=== PATIENT | female | born 1935 | race Caucasian/White ===

== ENCOUNTER 2020-04-08 20:07 | Inpatient (IN) | payer MEDICARE, MEDICAID ==
[2020-04-08] MEDS ORDERED: Acetaminophen 325 MG TAB ONE (20:30)
[2020-04-08 20:53] LABS: #Lymphocytes 1.2 thou/uL (1.20-3.40); #Neutrophils 12.5 thou/uL (1.40-6.50); %Basophils 0.1 % (0.0-1.0); %Eosinophils 0.2 % (0.0-10.0); %Monocytes 6.6 % (0.0-10.0); %Neutrophils 85.1 % (42.0-75.0); Hemoglobin 14.3 g/dL (12.0-16.0); Mean Corpuscular HGB CONC 32.8 g/dL (32.0-36.0); Mean Corpuscular Hemoglobin 31.6 pg (27.0-31.0); Mean Corpuscular Volume 96.3 fL (78.0-98.0); Mean Platelet Volume 7.4 fL (7.4-10.4); Platelet Count 382 thou/uL (130-400); RBC Distribution Width 11.9 % (11.5-14.5); Red Blood Cell (RBC) Count 4.54 mill/uL (4.20-5.40); White Blood Cell (WBC) Count 14.6 thou/uL (4.8-10.8)
[2020-04-08 21:16] LABS: ALT (SGPT) 16 U/L (8-55); AST (SGOT) 16 U/L (5-34); Albumin 3.6 g/dL (3.4-4.8); Alkaline Phosphatase 87 U/L (40-110); Anion Gap 17 mmol/L (10-20); BUN (Urea Nitrogen) 19 mg/dL (9.8-20.1); Bilirubin, Total 0.6 mg/dL (0.2-1.2); Calc. Creatinine Clearance 0 mL/min (70-130); Calcium 9.5 mg/dL (7.8-10.44); Carbon Dioxide 24 mmol/L (23-31); Chloride 99 mmol/L (98-107); Globulin 4.2 g/dL (2.4-3.5); Glucose 336 mg/dL (83-110); Magnesium 1.7 mg/dL (1.6-2.6); Protein, Total 7.8 g/dL (5.8-8.1); Sodium 135 mmol/L (136-145)
[2020-04-08 21:22] LABS: Bacteria/HPF 4+ HPF (None Seen); Bilirubin Negative (Negative); Blood, Urine Negative (Negative); Clarity Clear (Clear); Glucose, Urine (Dipstick) Greater than 1000 mg/dL (Negative); Ketone, Urine 60 mg/dL (Negative); Leukocyte 250 Leu/uL (Negative); Nitrite 2+ (Negative); Protein, Urine (Dipstick) 10 mg/dL (Neg-Trace); RBC/HPF 0-3 HPF (0-3); Renal Epithelial 0-3 HPF (None Seen); Specific Gravity, Urine 1.029 (1.002-1.036); Squamous Epithelial None Seen HPF (0-3); Urobilinogen Normal mg/dL (Less than 2); WBC/HPF 21-50 HPF (0-3)
--- NOTE | 2020-04-08 22:54 | RAD ---
RADIOGRAPH CHEST 1 VIEW: DATE: 04/08/2020 TIME: 10:45 PM HISTORY: 84-year-old female with cough COMPARISON: 07/08/2012 FINDINGS: Previously demonstrated density at right medial base is no longer present. No significant interval change in the lower thoracic midline mass. New subtle finding of faint, very small patchy reticulonodular densities at the left lateral lower gopi ng zone. No consolidation or pulmonary edema. No cardiomegaly or pneumothorax. IMPRESSION: 1) nonspecific faint mild pulmonary densities at left lateral lower lung zone. 2) moderate size hiatal hernia
[2020-04-08] MEDS ORDERED: cefTRIAXone\\ROCEPHIN 2 GM VIAL ONE (22:56)
[2020-04-08 23:45] LABS: SARS-CoV-2 NAA Rapid Test DETECTED (NotDetected)
[2020-04-09] MEDS ORDERED: Ondansetron PF 4 MG/2 ML Vial IVP PRN (00:27)
[2020-04-09] MEDS ORDERED: Dextrose 5% in Water 1,000 ML IV PRN (00:34)
[2020-04-09] MEDS ORDERED: Dextrose 50% Abboject 50 ML SYRINGE SLOW IVP PRN (00:34)
[2020-04-09] MEDS ORDERED: hydrALAZINE 20 MG/ML VIAL SLOW IVP PRN (00:36)
[2020-04-09] MEDS ORDERED: Sodium Chloride 0.9% 1,000 ML IV SCH (00:45)
--- NOTE | 2020-04-09 00:51 | PDOC.HHP ---
Hospitalist HPI Weakness, Cough History of Present Illness: Patient is 84 year-old female with PMH of HTN, DM II, hypothyroidism, and seizure who presents to the ED from [facility] living with fever and generalized weakness. Patient also reports dry cough and dysuria. She denies SOB of chest pain. Per report, patient states she started having her symptoms after she received her COVID-19 vaccine 3 days ago. ED Course: Initial vitals: BP:181/99, Pulse: 103, Temp: 100.1 oF, Spo2: 96% on RA COVID-19 test positive. CXR: nonsepcified faint mild pulmonary desities at the left lateral lower lung zone Allergies/Adverse Reactions: Allergy/AdvReac Type Severity Reaction Status Date / Time No Known Allergies Allergy Unverified 04/09/20 00:27 Past History: PMHx: HTN, DM type 2, Seizure, Hypothyroidism PSHx: None FHx: Father: CAD Mother: Cancer Social: denies cigaret, alcohol, or drug use Walks with a walker Hospitalist HPI ROS Constitutional: denies: chills Eyes: denies: vision change ENT: denies: throat pain Respiratory: reports: cough, shortness of breath Cardiovascular: denies: chest pain Gastrointestinal: denies: nausea, vomiting, diarrhea Genitourinary: reports: dysuria. denies: frequency Musculoskeletal: reports: leg pain Skin: denies: rash Neurological: reports: other (Negative for MCKEE) All other systems reviewed; all pertinent +/- noted in HPI/Subj Hospitalist Exam General Appearance: NAD, awake alert Eye: PERRL ENT: dry oral mucosa Neck: supple, no JVD Heart: RRR, no murmur Respiratory: CTAB, no wheezes Gastrointestinal: soft, non-tender, non-distended, normal bowel sounds Extremities: no edema Neurological: normal sensation to touch, no weakness Musculoskeletal: normal strength Musculoskeletal - other findings: no CVA tenderness bilaterally Psychiatric: normal affect, oriented to person, oriented to place Hospitalist Results Result Diagrams: 04/08/20 20:36 04/08/20 20:36 Lab results: Laboratory Last Values WBC 14.6 thou/uL (4.8-10.8) H 04/08/20 20:36 RBC 4.54 mill/uL (4.20-5.40) 04/08/20 20:36 Hgb 14.3 g/dL (12.0-16.0) 04/08/20 20:36 Hct 43.7 % (36.0-47.0) 04/08/20 20:36 MCV 96.3 fL (78.0-98.0) 04/08/20 20:36 MCH 31.6 pg (27.0-31.0) H 04/08/20 20:36 MCHC 32.8 g/dL (32.0-36.0) 04/08/20 20:36 RDW 11.9 % (11.5-14.5) 04/08/20 20:36 Plt Count 382 thou/uL (130-400) 04/08/20 20:36 MPV 7.4 fL (7.4-10.4) 04/08/20 20:36 Neutrophils % 85.1 % (42.0-75.0) H 04/08/20 20:36 Lymphocytes % 8.0 % (21.0-51.0) L 04/08/20 20:36 Monocytes % 6.6 % (0.0-10.0) 04/08/20 20:36 Eosinophils % 0.2 % (0.0-10.0) 04/08/20 20:36 Basophils % 0.1 % (0.0-1.0) 04/08/20 20:36 Neutrophils # 12.5 thou/uL (1.40-6.50) H 04/08/20 20:36 Lymphocytes # 1.2 thou/uL (1.20-3.40) 04/08/20 20:36 Monocytes # 1.0 thou/uL (0.11-0.59) H 04/08/20 20:36 Eosinophils # 0.0 thou/uL (0.0-0.7) 04/08/20 20:36 Basophils # 0.0 thou/uL (0.0-0.2) 04/08/20 20:36 Sodium 135 mmol/L (136-145) L 04/08/20 20:36 Potassium 5.0 mmol/L (3.5-5.1) 04/08/20 20:36 Chloride 99 mmol/L (98-107) 04/08/20 20:36 Carbon Dioxide 24 mmol/L (23-31) 04/08/20 20:36 Anion Gap 17 mmol/L (10-20) 04/08/20 20:36 BUN 19 mg/dL (9.8-20.1) 04/08/20 20:36 Creatinine 1.17 mg/dL (0.6-1.1) H 04/08/20 20:36 Estimated GFR (MDRD) 44 04/08/20 20:36 Glucose 336 mg/dL (83-110) H 04/08/20 20:36 Calcium 9.5 mg/dL (7.8-10.44) 04/08/20 20:36 Magnesium 1.7 mg/dL (1.6-2.6) 04/08/20 20:36 Total Bilirubin 0.6 mg/dL (0.2-1.2) 04/08/20 20:36 AST 16 U/L (5-34) 04/08/20 20:36 ALT 16 U/L (8-55) 04/08/20 20:36 Alkaline Phosphatase 87 U/L (40-110) 04/08/20 20:36 Creatine Kinase 31 U/L (29-168) 04/08/20 20:37 Troponin I Less than 0.010 ng/mL (< 0.028) 04/08/20 20:36 Serum Total Protein 7.8 g/dL (5.8-8.1) 04/08/20 20:36 Albumin 3.6 g/dL (3.4-4.8) 04/08/20 20:36 Globulin 4.2 g/dL (2.4-3.5) H 04/08/20 20:36 Albumin/Globulin Ratio 0.9 g/dL (1.2-2.2) L 04/08/20 20:36 Urine Color Yellow (Yellow) 04/08/20 21:04 Urine Clarity Clear (Clear) 04/08/20 21:04 Urine pH 5.0 (5.0-9.0) 04/08/20 21:04 Ur Specific [place] 1.029 (1.002-1.036) 04/08/20 21:04 Urine Protein 10 mg/dL (Neg-Trace) 04/08/20 21:04 Urine Glucose (UA) Greater than 1000 mg/dL (Negative) A 04/08/20 21:04 Urine Ketones 60 mg/dL (Negative) A 04/08/20 21:04 Urine Blood Negative (Negative) 04/08/20 21: Urine Nitrite 2+ (Negative) A 04/08/20 21:04 Urine Bilirubin Negative (Negative) 04/08/20 21:04 Urine Urobilinogen Normal mg/dL (Less than 2) 04/08/20 21:04 Ur Leukocyte Esterase 250 [place]eline/uL (Negative) A 04/08/20 21:04 Urine RBC 0-3 HPF (0-3) 04/08/20 21:04 Urine WBC 21-50 HPF (0-3) A 04/08/20 21:04 Ur Squamous Epith Cells None Seen HPF (0-3) 04/08/20 21:04 Ur Renal Epithelial Cell 0-3 HPF (None Seen) A 04/08/20 21:04 Urine Bacteria 4+ HPF (None Seen) A 04/08/20 21:04 Hyaline Casts 0-3 LPF (0-3) 04/08/20 21:04 Influenza A RNA INAAT Not Detected (NotDetected) 04/08/20 22:38 Influenza B RNA INAAT Not Detected (NotDetected) 04/08/20 22:38 SARS-CoV-2 Rap RNA(RT-PCR) DETECTED (NotDetected) A* 04/08/20 22:38 EKG Status: image reviewed by me (NSR) Chest x-ray Status: image reviewed by me Additional Comments: RADIOLOGY SatApr 08, 2020 22:57 MD Raya, Amparo XR Chest 1 View Portable Observe DT: SatApr 08, 2020 22:29, CXRP RADIOGRAPH CHEST 1 VIEW: DATE: 04/08/2020 TIME: 10:45 PM HISTORY: 84-year-old female with cough COMPARISON: 07/08/2012 FINDINGS: Previously demonstrated density at right medial base is no longer present. No significant interval change in the lower thoracic midline mass. New subtle finding of faint, very small patchy reticulonodular densities at the left lateral lower gopi ng zone. No consolidation or pulmonary edema. No cardiomegaly or pneumothorax. IMPRESSION: 1) nonspecific faint mild pulmonary densities at left lateral lower lung zone. 2) moderate size hiatal hernia Hospitalist H&P A/P (1) UTI (urinary tract infection) Status: Acute Qualifiers: Urinary tract infection type: acute cystitis Assessment and Plan: UA consistent with UTI. She also has low grade fever and leukocytosis. No CVA tenderness on exam. Plan: -f/u urine and blood culture -continue Ceftriaxone (2) AMY (acute kidney injury) Code(s): N17.9 - ACUTE KIDNEY FAILURE, UNSPECIFIED Status: Acute Assessment and Plan: [place] pre-renal. Plan: -IV fluid -repeat BMP in AM -renally dose meds (3) COVID-19 Code(s): U07.1 - COVID-19 Status: Acute Assessment and Plan: Not requring O2 supplement. Plan: -Zinc, Vitamin C, and Vitamin D (4) DM (diabetes mellitus), type 2, uncontrolled Code(s): E11.65 - TYPE 2 DIABETES MELLITUS WITH HYPERGLYCEMIA Status: Chronic Qualifiers: Glycemic state: with hyperglycemia Qualified Code(s): E11.65 - Type 2 diabetes mellitus with hyperglycemia Assessment and Plan: Initial BG level elevated. Patient states she is on insulin outpatient. Plan: -SS insulin ACHS -cont home meds once reconciled (5) Generalized weakness Code(s): R53.1 - WEAKNESS Status: Acute Assessment and Plan: Likely due to her UTI and/COID-19. Plan: -treat UTI as above -PT consulted (6) Seizure Code(s): R56.9 - UNSPECIFIED CONVULSIONS Status: Chronic Assessment and Plan: No med list was sent with the patient. Plan: -cont home med once reconciled (7) HTN (hypertension) Code(s): I10 - ESSENTIAL (PRIMARY) HYPERTENSION Status: Chronic Assessment and Plan: Plan: -cont home med once reconciled -Hydrazine iv prn
[2020-04-09 01:58] VITALS: BMI 25.8
[2020-04-09] MEDS: HumaLOG 300 UNITS/3 ML VIAL SC PRN ×4 (05:07→20:23)
[2020-04-09 06:19] LABS: Anion Gap 14 mmol/L (10-20); BUN (Urea Nitrogen) 15 mg/dL (9.8-20.1); Calc. Creatinine Clearance 51 mL/min (70-130); Carbon Dioxide 20 mmol/L (23-31); Chloride 104 mmol/L (98-107); Potassium 4.4 mmol/L (3.5-5.1); Sodium 134 mmol/L (136-145)
[2020-04-09 06:20] LABS: ALT (SGPT) 12 U/L (8-55); AST (SGOT) 12 U/L (5-34); Albumin 2.7 g/dL (3.4-4.8); Alkaline Phosphatase 71 U/L (40-110); Bilirubin, Total 0.4 mg/dL (0.2-1.2); Calcium 8.2 mg/dL (7.8-10.44); Globulin 3.2 g/dL (2.4-3.5); Glucose 420 mg/dL (83-110); Protein, Total 5.9 g/dL (5.8-8.1)
[2020-04-09] MEDS: Zinc Sulfate 220 MG CAP PO SCH (08:36)
[2020-04-09] MEDS: Cholecalciferol (Vitamin D3) 400 UNITS TAB PO SCH (08:36)
[2020-04-09] MEDS: Ascorbic Acid 500 mg Chewable Tablet PO SCH (08:37)
[2020-04-09] MEDS: Heparin 5,000 UNITS/ML VIAL SC SCH ×3 (08:37→20:22)
--- NOTE | 2020-04-09 11:42 | PDOC.HOSPP ---
- Subjective Encounter Date: 04/09/20 (f/u UTI) Encounter Time: 11:39 Subjective: Pt reports that she is feeling better today but still weak. She has not been out of bed. She denies any cp/n/v/abd pain. - Objective Vital Signs & Weight: Vital Signs (12 hours) Temp Pulse Resp BP Pulse Ox 04/09/20 08:00 99.1 F 82 20 150/80 H 92 L 04/09/20 03:59 98.8 F 91 18 143/69 H 96 04/09/20 01:05 98.5 F 90 18 177/72 H 96 Weight Weight 160 lb 4.417 oz I&O: 04/08/20 04/09/20 04/10/20 06:59 06:59 06:59 Intake Total 725 Balance 725 Result Diagrams: 04/08/20 20:36 04/09/20 05:36 Additional Labs: Accuchecks 04/09/20 04:50 POC Glucose 389 H Hospitalist ROS - Medication Medications: Active Medications Generic Name Dose Route Start Last Admin Trade Name Jena PRN Reason Stop Dose Admin Ascorbic Acid 1,000 mg 04/09/20 09:00 04/09/20 08:37 Ascorbic Acid 500 Mg Chewable Tablet PO 1,000 mg DAILY CAIT Administration Cholecalciferol 400 units 04/09/20 09:00 04/09/20 08:36 Cholecalciferol (Vitamin D3) 400 Units Tab PO 400 units DAILY CAIT Administration Heparin Sodium (Porcine) 5,000 units 04/09/20 09:00 04/09/20 08:37 Heparin 5,000 Units/Ml Vial SC 5,000 units TID CAIT Administration Insulin Human Lispro 0 units 04/09/20 00:34 04/09/20 05:07 Humalog 300 Units/3 Ml Vial SC 6 unit .MILD SLIDING SCALE PRN Administration Mild Correctional Scale Sodium Chloride 10 ml 04/09/20 01:00 04/09/20 02:37 Flush - Normal Saline 10 Ml Syringe IVF 10 ml PRN PRN Administration Saline Flush Zinc Sulfate 220 mg 04/09/20 09:00 04/09/20 08:36 Zinc Sulfate 220 Mg Cap PO 220 mg DAILY CAIT Administration Hospitalist Exam Vitals: Vital Signs (12 hours) Temp Pulse Resp BP Pulse Ox 04/09/20 08:00 99.1 F 82 20 150/80 H 92 L 04/09/20 03:59 98.8 F 91 18 143/69 H 96 04/09/20 01:05 98.5 F 90 18 177/72 H 96 Weight Weight 160 lb 4.417 oz General Appearance: NAD Heart: RRR, no murmur Respiratory: CTAB, no wheezes, no rales, no ronchi Gastrointestinal: soft, non-tender, non-distended, normal bowel sounds Extremities: no cyanosis, no clubbing, no edema Psychiatric: normal affect Hosp A/P (1) AMY (acute kidney injury) Code(s): N17.9 - ACUTE KIDNEY FAILURE, UNSPECIFIED Status: Acute (2) COVID-19 Code(s): U07.1 - COVID-19 Status: Acute (3) Generalized weakness Code(s): R53.1 - WEAKNESS Status: Acute (4) UTI (urinary tract infection) Status: Acute Qualifiers: Urinary tract infection type: acute cystitis (5) DM (diabetes mellitus), type 2, uncontrolled Code(s): E11.65 - TYPE 2 DIABETES MELLITUS WITH HYPERGLYCEMIA Status: Chronic Qualifiers: Glycemic state: with hyperglycemia Qualified Code(s): E11.65 - Type 2 diabetes mellitus with hyperglycemia (6) HTN (hypertension) Code(s): I10 - ESSENTIAL (PRIMARY) HYPERTENSION Status: Chronic (7) Seizure Code(s): R56.9 - UNSPECIFIED CONVULSIONS Status: Chronic - Plan COVID - asx, not oxygen requiring, on supplements only UTI - urine culture obtained -no result yet - continue rocephin - blood cx negative DM - uncontrolled - add 10 units of lantus - continue SSI - meds reconcilled AMY - mild - has received IVF, will d/c to avoid volume overload - hold home losartan Hypertension - not optimally controlled - will start low dose amlodipine - hold home losartan due to AMY Seizure - uncertain of this dx as no home med identified Weakness - PT/OT dvt prophy - lovenox gi prophy - not indicated Because we are waiting on the urine culture, for potentially complicated infection, will continue rocephin and change the patient to inpatient status as she meets medicare criteria.
[2020-04-09] MEDS ORDERED: Amlodipine 5 MG TAB PO SCH (11:45)
[2020-04-09] MEDS ORDERED: Insulin Glargine 10 UNITS in Pre-Filled Syringe 1 EACH SC SCH (12:00)
[2020-04-09] MEDS: metFORMIN XR 500 MG TAB PO SCH (18:26)
[2020-04-09] MEDS: Acetaminophen 325 MG TAB PO PRN (20:21)
[2020-04-09] MEDS: cefTRIAXone\\ROCEPHIN 1 GM in Sodium Chloride 0.9% 100 ML IVPB SCH (23:35)
[2020-04-10] MEDS: HumaLOG 300 UNITS/3 ML VIAL SC PRN ×3 (04:44→20:21)
[2020-04-10 06:56] LABS: #Eosinphils 0.1 thou/uL (0.0-0.7); #Lymphocytes 1.4 thou/uL (1.20-3.40); #Monocytes 0.8 thou/uL (0.11-0.59); #Neutrophils 8.8 thou/uL (1.40-6.50); %Eosinophils 0.5 % (0.0-10.0); %Lymphocytes 12.3 % (21.0-51.0); %Neutrophils 80.2 % (42.0-75.0); Mean Corpuscular HGB CONC 32.2 g/dL (32.0-36.0); Mean Corpuscular Hemoglobin 31.1 pg (27.0-31.0); Mean Corpuscular Volume 96.7 fL (78.0-98.0); Mean Platelet Volume 7.5 fL (7.4-10.4); Platelet Count 311 thou/uL (130-400); RBC Distribution Width 11.7 % (11.5-14.5); Red Blood Cell (RBC) Count 3.85 mill/uL (4.20-5.40)
[2020-04-10 07:13] LABS: Anion Gap 12 mmol/L (10-20); BUN (Urea Nitrogen) 9 mg/dL (9.8-20.1); Calc. Creatinine Clearance 54 mL/min (70-130); Calcium 8.2 mg/dL (7.8-10.44); Carbon Dioxide 24 mmol/L (23-31); Chloride 101 mmol/L (98-107); Glucose 195 mg/dL (83-110); Potassium 3.8 mmol/L (3.5-5.1); Sodium 133 mmol/L (136-145)
[2020-04-10] MEDS: metFORMIN XR 500 MG TAB PO SCH ×2 (08:57→18:56)
[2020-04-10] MEDS: Alogliptin 25 MG TAB PO SCH (08:57)
[2020-04-10] MEDS: Amlodipine 5 MG TAB PO SCH (08:58)
[2020-04-10] MEDS: Ascorbic Acid 500 mg Chewable Tablet PO SCH (08:58)
[2020-04-10] MEDS: Heparin 5,000 UNITS/ML VIAL SC SCH ×3 (08:58→20:14)
[2020-04-10] MEDS: Cholecalciferol (Vitamin D3) 400 UNITS TAB PO SCH (08:58)
[2020-04-10] MEDS: Zinc Sulfate 220 MG CAP PO SCH (08:58)
[2020-04-10] MEDS ORDERED: Insulin Glargine 10 UNITS in Pre-Filled Syringe 1 EACH SC SCH (09:00)
[2020-04-10] MEDS ORDERED: Losartan 25 MG TAB PO SCH (09:00)
--- NOTE | 2020-04-10 13:10 | PDOC.HOSPP ---
- Subjective Encounter Date: 04/10/20 (f/u UTI and covid) Encounter Time: 13:09 Subjective: Pt today reports her left knee hurts - sharp pain. She denies any fall prior to this admission. She denies any n/v/abd pain/chest pain or breathing difficulty. - Objective Vital Signs & Weight: Vital Signs (12 hours) Temp Pulse Resp BP Pulse Ox 04/10/20 08:58 90 04/10/20 07:00 99.0 F 93 20 170/75 H 97 Weight Admit Weight 160 lb 4.417 oz Weight 160 lb 4.417 oz I&O: 04/09/20 04/10/20 04/11/20 06:59 06:59 06:59 Intake Total 725 1635 Output Total 1600 Balance 725 35 Result Diagrams: 04/10/20 06:14 04/10/20 06:14 Additional Labs: Accuchecks 04/10/20 04/10/20 04/09/20 11:57 04:37 19:56 POC Glucose 355 H 210 H 317 H 04/09/20 16:05 POC Glucose 255 H Hospitalist ROS - Medication Medications: Active Medications Generic Name Dose Route Start Last Admin Trade Name Freq PRN Reason Stop Dose Admin Acetaminophen 650 mg 04/09/20 00:27 04/09/20 20:21 Acetaminophen 325 Mg Tab PO 650 mg Q4H PRN Administration Headache/Fever/Mild Pain (1-3) Alogliptin Benzoate 25 mg 04/10/20 09:00 04/10/20 08:57 Alogliptin 25 Mg Tab PO 25 mg DAILY CAIT Administration Amlodipine Besylate 2.5 mg 04/10/20 09:00 04/10/20 08:58 Amlodipine 5 Mg Tab PO 2.5 mg DAILY CAIT Administration Ascorbic Acid 1,000 mg 04/09/20 09:00 04/10/20 08:58 Ascorbic Acid 500 Mg Chewable Tablet PO 1,000 mg DAILY CAIT Administration Cholecalciferol 400 units 04/09/20 09:00 04/10/20 08:58 Cholecalciferol (Vitamin D3) 400 Units Tab PO 400 units DAILY CAIT Administration Heparin Sodium (Porcine) 5,000 units 04/09/20 09:00 04/10/20 08:58 Heparin 5,000 Units/Ml Vial SC 5,000 units TID CAIT Administration Ceftriaxone Sodium 1 gm/ 100 mls @ 200 mls/hr 04/09/20 23:00 04/09/20 23:35 Sodium Chloride IVPB 100 mls Q24HR CAIT Administration Insulin Glargine 10 units/ 0.1 mls @ 0 mls/hr 04/10/20 09:00 04/10/20 08:58 Miscellaneous Medication SC 0.1 mls QAM CAIT Administration Insulin Human Lispro 0 units 04/09/20 00:34 04/10/20 04:44 Humalog 300 Units/3 Ml Vial SC 3 unit .MILD SLIDING SCALE PRN Administration Mild Correctional Scale Insulin Human Lispro 0 units 04/09/20 11:37 04/09/20 20:23 Humalog 300 Units/3 Ml Vial SC 5 unit .BEDTIME SLIDING SC PRN Administration Bedtime Correctional Scale Metformin HCl 500 mg 04/09/20 18:00 04/10/20 08:57 Metformin Xr 500 Mg Tab PO 500 mg BID-PC CAIT Administration Sodium Chloride 10 ml 04/09/20 01:00 04/09/20 23:36 Flush - Normal Saline 10 Ml Syringe IVF 10 ml PRN PRN Administration Saline Flush Zinc Sulfate 220 mg 04/09/20 09:00 04/10/20 08:58 Zinc Sulfate 220 Mg Cap PO 220 mg DAILY CAIT Administration Hospitalist Exam Vitals: Vital Signs (12 hours) Temp Pulse Resp BP Pulse Ox 04/10/20 08:58 90 04/10/20 07:00 99.0 F 93 20 170/75 H 97 Weight Admit Weight 160 lb 4.417 oz Weight 160 lb 4.417 oz General Appearance: NAD Heart: RRR, no murmur Respiratory: CTAB, no wheezes, no rales, no ronchi Gastrointestinal: soft, non-tender, non-distended, normal bowel sounds Extremities: no cyanosis, no clubbing, no edema Musculoskeletal - other findings: left knee - no skin changes, no edema Psychiatric: normal affect Hosp A/P (1) AMY (acute kidney injury) Code(s): N17.9 - ACUTE KIDNEY FAILURE, UNSPECIFIED Status: Acute (2) COVID-19 Code(s): U07.1 - COVID-19 Status: Acute (3) Generalized weakness Code(s): R53.1 - WEAKNESS Status: Acute (4) UTI (urinary tract infection) Status: Acute Qualifiers: Urinary tract infection type: acute cystitis (5) DM (diabetes mellitus), type 2, uncontrolled Code(s): E11.65 - TYPE 2 DIABETES MELLITUS WITH HYPERGLYCEMIA Status: Chronic Qualifiers: Glycemic state: with hyperglycemia Qualified Code(s): E11.65 - Type 2 diabetes mellitus with hyperglycemia (6) HTN (hypertension) Code(s): I10 - ESSENTIAL (PRIMARY) HYPERTENSION Status: Chronic (7) Seizure Code(s): R56.9 - UNSPECIFIED CONVULSIONS Status: Chronic - Plan COVID - remains asx - asx, not oxygen requiring, on supplements only UTI with some encephalopathy - uncertain if pt has baseline cognitive changes or the confusion is related to illness - urine culture obtained -gram neg growth - anticipate ID&sens today - continue rocephin - blood cx negative DM - uncontrolled - increase to 13 units of lantus and change to moderate SSI - continue SSI AMY - resolved - s/p IVF - continue to hold losartan for a few more days Hypertension - improved - continue low dose amlodipine - hold home losartan due to AMY Seizure - uncertain of this dx as no home med identified Knee pain - check XR of left knee - topical diclofenac Weakness - PT/OT - PT recommends SNF - pt states she lives alone - will benefit from some type of transitional care dvt prophy - change to lovenox once daily from heparin gi prophy - not indicated Consult for case management for SNF Anticipate pt ready for discharge when placement is established
--- NOTE | 2020-04-10 14:10 | RAD ---
XR Knee Rt 3 View HISTORY: Left knee pain FINDINGS: No fracture or dislocation is identified. There are degenerative changes manifested by osteophyte for mation and joint space narrowing. Chondrocalcinosis is present.
[2020-04-10] MEDS: Diclofenac 1% 100 GM GEL TP SCH ×2 (18:56→20:13)
[2020-04-10] MEDS: Acetaminophen 325 MG TAB PO PRN (20:13)
[2020-04-10] MEDS: cefTRIAXone\\ROCEPHIN 1 GM in Sodium Chloride 0.9% 100 ML IVPB SCH (23:06)
[2020-04-11] MEDS: HumaLOG 300 UNITS/3 ML VIAL SC PRN ×4 (05:27→21:45)
[2020-04-11] MEDS: Ascorbic Acid 500 mg Chewable Tablet PO SCH (08:12)
[2020-04-11] MEDS: Amlodipine 5 MG TAB PO SCH (08:12)
[2020-04-11] MEDS: Alogliptin 25 MG TAB PO SCH (08:12)
[2020-04-11] MEDS: metFORMIN XR 500 MG TAB PO SCH ×2 (08:12→17:07)
[2020-04-11] MEDS: Heparin 5,000 UNITS/ML VIAL SC SCH ×3 (08:13→21:46)
[2020-04-11] MEDS: Diclofenac 1% 100 GM GEL TP SCH ×4 (08:13→21:37)
[2020-04-11] MEDS: Cholecalciferol (Vitamin D3) 400 UNITS TAB PO SCH (08:13)
[2020-04-11] MEDS: Zinc Sulfate 220 MG CAP PO SCH (08:13)
[2020-04-11 08:30] LABS: #Lymphocytes 1.3 thou/uL (1.20-3.40); #Monocytes 0.8 thou/uL (0.11-0.59); #Neutrophils 9.7 thou/uL (1.40-6.50); %Basophils 0.1 % (0.0-1.0); %Eosinophils 0.2 % (0.0-10.0); %Lymphocytes 10.8 % (21.0-51.0); %Monocytes 6.4 % (0.0-10.0); %Neutrophils 82.5 % (42.0-75.0); Hemoglobin 12.3 g/dL (12.0-16.0); Mean Corpuscular HGB CONC 33.6 g/dL (32.0-36.0); Mean Corpuscular Hemoglobin 32.3 pg (27.0-31.0); Mean Corpuscular Volume 96.4 fL (78.0-98.0); Mean Platelet Volume 7.6 fL (7.4-10.4); Platelet Count 332 thou/uL (130-400); White Blood Cell (WBC) Count 11.7 thou/uL (4.8-10.8)
[2020-04-11 08:50] LABS: Anion Gap 14 mmol/L (10-20); BUN (Urea Nitrogen) 10 mg/dL (9.8-20.1); Calc. Creatinine Clearance 58 mL/min (70-130); Calcium 8.8 mg/dL (7.8-10.44); Carbon Dioxide 23 mmol/L (23-31); Chloride 103 mmol/L (98-107); Glucose 158 mg/dL (83-110); Potassium 3.4 mmol/L (3.5-5.1); Sodium 137 mmol/L (136-145)
--- NOTE | 2020-04-11 09:16 | PDOC.HOSPP ---
- Subjective Encounter Date: 04/11/20 Encounter Time: 08:59 Subjective: alert. daniel fine - Objective Vital Signs & Weight: Vital Signs (12 hours) Temp Pulse Resp BP Pulse Ox 04/11/20 08:20 94 128/69 100 04/11/20 07:23 98.5 F 80 16 165/74 H 98 04/11/20 04:00 98.8 F 88 16 145/77 H 98 Weight Admit Weight 160 lb 4.417 oz Weight 160 lb 4.417 oz I&O: 04/10/20 04/11/20 04/12/20 06:59 06:59 06:59 Intake Total 1635 870 Output Total 1600 800 Balance 35 70 Result Diagrams: 04/11/20 07:55 04/11/20 07:55 Additional Labs: Accuchecks 04/11/20 04/10/20 04/10/20 05:02 20:19 16:39 POC Glucose 215 H 251 H 226 H 04/10/20 11:57 POC Glucose 355 H Hospitalist ROS - Medication Medications: Active Medications Generic Name Dose Route Start Last Admin Trade Name Freq PRN Reason Stop Dose Admin Acetaminophen 650 mg 04/09/20 00:27 04/10/20 20:13 Acetaminophen 325 Mg Tab PO 650 mg Q4H PRN Administration Headache/Fever/Mild Pain (1-3) Alogliptin Benzoate 25 mg 04/10/20 09:00 04/11/20 08:12 Alogliptin 25 Mg Tab PO 25 mg DAILY CAIT Administration Amlodipine Besylate 2.5 mg 04/10/20 09:00 04/11/20 08:12 Amlodipine 5 Mg Tab PO 2.5 mg DAILY CAIT Administration Ascorbic Acid 1,000 mg 04/09/20 09:00 04/11/20 08:12 Ascorbic Acid 500 Mg Chewable Tablet PO 1,000 mg DAILY CAIT Administration Cholecalciferol 400 units 04/09/20 09:00 04/11/20 08:13 Cholecalciferol (Vitamin D3) 400 Units Tab PO 400 units DAILY CAIT Administration Diclofenac Sodium 2 gm 04/10/20 17:00 04/11/20 08:13 Diclofenac 1% 100 Gm Gel TP 2 gm QID CAIT Administration Heparin Sodium (Porcine) 5,000 units 04/09/20 09:00 04/11/20 08:13 Heparin 5,000 Units/Ml Vial SC 5,000 units TID CAIT Administration Ceftriaxone Sodium 1 gm/ 100 mls @ 200 mls/hr 04/09/20 23:00 04/10/20 23:06 Sodium Chloride IVPB 100 mls Q24HR CAIT Administration Insulin Human Lispro 0 units 04/09/20 11:37 04/10/20 20:21 Humalog 300 Units/3 Ml Vial SC 3 unit .BEDTIME SLIDING SC PRN Administration Bedtime Correctional Scale Insulin Human Lispro 0 units 04/10/20 13:36 04/11/20 05:27 Humalog 300 Units/3 Ml Vial SC 4 unit .MODERATE SLIDING SC PRN Administration Moderate Correctional Scale Metformin HCl 500 mg 04/09/20 18:00 04/11/20 08:12 Metformin Xr 500 Mg Tab PO 500 mg BID-PC CAIT Administration Sodium Chloride 10 ml 04/09/20 01:00 04/09/20 23:36 Flush - Normal Saline 10 Ml Syringe IVF 10 ml PRN PRN Administration Saline Flush Zinc Sulfate 220 mg 04/09/20 09:00 04/11/20 08:13 Zinc Sulfate 220 Mg Cap PO 220 mg DAILY CAIT Administration Hospitalist Exam Vitals: Vital Signs (12 hours) Temp Pulse Resp BP Pulse Ox 04/11/20 08:20 94 128/69 100 04/11/20 07:23 98.5 F 80 16 165/74 H 98 04/11/20 04:00 98.8 F 88 16 145/77 H 98 Weight Admit Weight 160 lb 4.417 oz Weight 160 lb 4.417 oz General Appearance: awake alert Neck: no JVD Heart: RRR, no murmur Respiratory: CTAB Gastrointestinal: soft, normal bowel sounds Extremities: no edema Hosp A/P (1) AMY (acute kidney injury) Code(s): N17.9 - ACUTE KIDNEY FAILURE, UNSPECIFIED Status: Resolved (2) COVID-19 Code(s): U07.1 - COVID-19 Status: Acute (3) UTI (urinary tract infection) Status: Acute Qualifiers: Urinary tract infection type: acute cystitis (4) DM (diabetes mellitus), type 2, uncontrolled Code(s): E11.65 - TYPE 2 DIABETES MELLITUS WITH HYPERGLYCEMIA Status: Chronic Qualifiers: Glycemic state: with hyperglycemia Qualified Code(s): E11.65 - Type 2 diabetes mellitus with hyperglycemia (5) HTN (hypertension) Code(s): I10 - ESSENTIAL (PRIMARY) HYPERTENSION Status: Chronic Qualifiers: Hypertension type: essential hypertension Qualified Code(s): I10 - Essential (primary) hypertension - Plan COVID pos-asymptomatic, no mtx indicated UTI- e coli, DC iv antibx, starat omnicef cont selected home meds
[2020-04-11] MEDS ORDERED: Cefdinir 300 MG CAP PO SCH (09:30)
[2020-04-11] MEDS: PRE FILLED SC SCH (09:31)
[2020-04-11] MEDS: INSULIN GLARGINE SC SCH (09:31)
[2020-04-11] MEDS ORDERED: Polyethylene Glycol 3350 17 GM Packet PO SCH (10:45)
[2020-04-11] MEDS: Acetaminophen 325 MG TAB PO PRN (21:36)
[2020-04-11] MEDS: Cefdinir 300 MG CAP PO SCH (21:36)
[2020-04-12] MEDS: HumaLOG 300 UNITS/3 ML VIAL SC PRN ×3 (04:54→15:35)
--- NOTE | 2020-04-12 08:07 | PDOC.HOSPP ---
- Subjective Encounter Date: 04/12/20 Encounter Time: 08:06 Subjective: alert, no distress or complaints - Objective Vital Signs & Weight: Vital Signs (12 hours) Temp Pulse Resp BP Pulse Ox 04/12/20 07:27 98.5 F 91 18 162/84 H 95 Weight Admit Weight 160 lb 4.417 oz Weight 160 lb 4.417 oz I&O: 04/11/20 04/12/20 04/13/20 06:59 06:59 06:59 Intake Total 870 950 Output Total 800 300 Balance 70 650 Result Diagrams: 04/11/20 07:55 04/11/20 07:55 Additional Labs: Accuchecks 04/12/20 04/11/20 04/11/20 04:52 21:40 11:45 POC Glucose 228 H 288 H 251 H Hospitalist ROS - Medication Medications: Active Medications Generic Name Dose Route Start Last Admin Trade Name Freq PRN Reason Stop Dose Admin Acetaminophen 650 mg 04/09/20 00:27 04/11/20 21:36 Acetaminophen 325 Mg Tab PO 650 mg Q4H PRN Administration Headache/Fever/Mild Pain (1-3) Alogliptin Benzoate 25 mg 04/10/20 09:00 04/11/20 08:12 Alogliptin 25 Mg Tab PO 25 mg DAILY CAIT Administration Amlodipine Besylate 2.5 mg 04/10/20 09:00 04/11/20 08:12 Amlodipine 5 Mg Tab PO 2.5 mg DAILY CAIT Administration Ascorbic Acid 1,000 mg 04/09/20 09:00 04/11/20 08:12 Ascorbic Acid 500 Mg Chewable Tablet PO 1,000 mg DAILY CAIT Administration Cefdinir 300 mg 04/11/20 21:00 04/11/20 21:36 Cefdinir 300 Mg Cap PO 300 mg BID CAIT Administration Cholecalciferol 400 units 04/09/20 09:00 04/11/20 08:13 Cholecalciferol (Vitamin D3) 400 Units Tab PO 400 units DAILY CAIT Administration Diclofenac Sodium 2 gm 04/10/20 17:00 04/11/20 21:37 Diclofenac 1% 100 Gm Gel TP 2 gm QID CAIT Administration Heparin Sodium (Porcine) 5,000 units 04/09/20 09:00 04/11/20 21:46 Heparin 5,000 Units/Ml Vial SC 5,000 units TID CAIT Administration Insulin Glargine 13 units/ 0.13 mls @ 0 mls/hr 04/11/20 09:00 04/11/20 09:31 Miscellaneous Medication SC 0.13 mls QAM ACIT Administration Insulin Human Lispro 0 units 04/09/20 11:37 04/11/20 21:45 Humalog 300 Units/3 Ml Vial SC 3 unit .BEDTIME SLIDING SC PRN Administration Bedtime Correctional Scale Insulin Human Lispro 0 units 04/10/20 13:36 04/12/20 04:54 Humalog 300 Units/3 Ml Vial SC 4 unit .MODERATE SLIDING SC PRN Administration Moderate Correctional Scale Metformin HCl 500 mg 04/09/20 18:00 04/11/20 17:07 Metformin Xr 500 Mg Tab PO 500 mg BID-PC CAIT Administration Sodium Chloride 10 ml 04/09/20 01:00 04/09/20 23:36 Flush - Normal Saline 10 Ml Syringe IVF 10 ml PRN PRN Administration Saline Flush Zinc Sulfate 220 mg 04/09/20 09:00 04/11/20 08:13 Zinc Sulfate 220 Mg Cap PO 220 mg DAILY CAIT Administration Hospitalist Exam Vitals: Vital Signs (12 hours) Temp Pulse Resp BP Pulse Ox 04/12/20 07:27 98.5 F 91 18 162/84 H 95 Weight Admit Weight 160 lb 4.417 oz Weight 160 lb 4.417 oz General Appearance: awake alert Neck: no JVD Heart: RRR, no murmur Respiratory: CTAB Gastrointestinal: soft, normal bowel sounds Extremities: no edema Hosp A/P (1) AMY (acute kidney injury) Code(s): N17.9 - ACUTE KIDNEY FAILURE, UNSPECIFIED Status: Resolved (2) COVID-19 Code(s): U07.1 - COVID-19 Status: Acute (3) UTI (urinary tract infection) Status: Acute Qualifiers: Urinary tract infection type: acute cystitis (4) DM (diabetes mellitus), type 2, uncontrolled Code(s): E11.65 - TYPE 2 DIABETES MELLITUS WITH HYPERGLYCEMIA Status: Chronic Qualifiers: Glycemic state: with hyperglycemia Qualified Code(s): E11.65 - Type 2 diabetes mellitus with hyperglycemia (5) HTN (hypertension) Code(s): I10 - ESSENTIAL (PRIMARY) HYPERTENSION Status: Chronic Qualifiers: Hypertension type: essential hypertension Qualified Code(s): I10 - E ssential (primary) hypertension - Plan COVID pos-asymptomatic, no tx indicated UTI- e coli,on omnicef cont selected home meds placement
[2020-04-12] MEDS: Ascorbic Acid 500 mg Chewable Tablet PO SCH (08:19)
[2020-04-12] MEDS: metFORMIN XR 500 MG TAB PO SCH ×2 (08:19→17:09)
[2020-04-12] MEDS: Heparin 5,000 UNITS/ML VIAL SC SCH ×3 (08:20→19:44)
[2020-04-12] MEDS: Amlodipine 5 MG TAB PO SCH (08:20)
[2020-04-12] MEDS: Polyethylene Glycol 3350 17 GM Packet PO SCH (08:21)
[2020-04-12] MEDS: Cefdinir 300 MG CAP PO SCH ×2 (08:21→19:44)
[2020-04-12] MEDS: Cholecalciferol (Vitamin D3) 400 UNITS TAB PO SCH (08:21)
[2020-04-12] MEDS: Zinc Sulfate 220 MG CAP PO SCH (08:21)
[2020-04-12] MEDS: Alogliptin 25 MG TAB PO SCH (08:21)
[2020-04-12] MEDS: Diclofenac 1% 100 GM GEL TP SCH ×4 (08:25→19:45)
[2020-04-12] MEDS: INSULIN GLARGINE SC SCH (09:59)
[2020-04-12] MEDS: PRE FILLED SC SCH (09:59)
[2020-04-13] MEDS: HumaLOG 300 UNITS/3 ML VIAL SC PRN ×4 (05:25→20:22)
--- NOTE | 2020-04-13 08:06 | PDOC.HOSPP ---
- Subjective Encounter Date: 04/13/20 Encounter Time: 08:05 Subjective: alert, cheerfull, eating well - Objective Vital Signs & Weight: Vital Signs (12 hours) Temp Pulse Resp BP Pulse Ox 04/13/20 07:25 97.8 F 94 18 150/82 H 93 L Weight Admit Weight 160 lb 4.417 oz Weight 160 lb 4.417 oz I&O: 04/12/20 04/13/20 04/14/20 06:59 06:59 06:59 Intake Total 950 1680 Output Total 300 950 Balance 650 730 Result Diagrams: 04/11/20 07:55 04/11/20 07:55 Additional Labs: Accuchecks 04/13/20 04/12/20 04/12/20 04:29 15:29 12:09 POC Glucose 187 H 284 H 396 H 04/12/20 04/11/20 11:11 16:29 POC Glucose 395 H 224 H Hospitalist ROS - Medication Medications: Active Medications Generic Name Dose Route Start Last Admin Trade Name Freq PRN Reason Stop Dose Admin Acetaminophen 650 mg 04/09/20 00:27 04/11/20 21:36 Acetaminophen 325 Mg Tab PO 650 mg Q4H PRN Administration Headache/Fever/Mild Pain (1-3) Alogliptin Benzoate 25 mg 04/10/20 09:00 04/12/20 08:21 Alogliptin 25 Mg Tab PO 25 mg DAILY CAIT Administration Amlodipine Besylate 2.5 mg 04/10/20 09:00 04/12/20 08:20 Amlodipine 5 Mg Tab PO 2.5 mg DAILY CAIT Administration Ascorbic Acid 1,000 mg 04/09/20 09:00 04/12/20 08:19 Ascorbic Acid 500 Mg Chewable Tablet PO 1,000 mg DAILY CAIT Administration Cefdinir 300 mg 04/11/20 21:00 04/12/20 19:44 Cefdinir 300 Mg Cap PO 300 mg BID CAIT Administration Cholecalciferol 400 units 04/09/20 09:00 04/12/20 08:21 Cholecalciferol (Vitamin D3) 400 Units Tab PO 400 units DAILY CAIT Administration Diclofenac Sodium 2 gm 04/10/20 17:00 04/12/20 19:45 Diclofenac 1% 100 Gm Gel TP 2 gm QID CAIT Administration Heparin Sodium (Porcine) 5,000 units 04/09/20 09:00 04/12/20 19:44 Heparin 5,000 Units/Ml Vial SC 5,000 units TID CAIT Administration Insulin Glargine 13 units/ 0.13 mls @ 0 mls/hr 04/11/20 09:00 04/12/20 09:59 Miscellaneous Medication SC 0.13 mls QAM CAIT Administration Insulin Human Lispro 0 units 04/09/20 11:37 04/11/20 21:45 Humalog 300 Units/3 Ml Vial SC 3 unit .BEDTIME SLIDING SC PRN Administration Bedtime Correctional Scale Insulin Human Lispro 0 units 04/10/20 13:36 04/13/20 05:25 Humalog 300 Units/3 Ml Vial SC 2 unit .MODERATE SLIDING SC PRN Administration Moderate Correctional Scale Metformin HCl 500 mg 04/09/20 18:00 04/12/20 17:09 Metformin Xr 500 Mg Tab PO 500 mg BID-PC CAIT Administration Polyethylene Glycol 17 gm 04/12/20 09:00 04/12/20 08:21 Polyethylene Glycol 3350 17 Gm Packet PO 17 gm DAILY CAIT Administration Sodium Chloride 10 ml 04/09/20 01:00 04/09/20 23:36 Flush - Normal Saline 10 Ml Syringe IVF 10 ml PRN PRN Administration Saline Flush Zinc Sulfate 220 mg 04/09/20 09:00 04/12/20 08:21 Zinc Sulfate 220 Mg Cap PO 220 mg DAILY CAIT Administration Hospitalist Exam Vitals: Vital Signs (12 hours) Temp Pulse Resp BP Pulse Ox 04/13/20 07:25 97.8 F 94 18 150/82 H 93 L Weight Admit Weight 160 lb 4.417 oz Weight 160 lb 4.417 oz General Appearance: awake alert Neck: no JVD Heart: RRR, no murmur Respiratory: CTAB Gastrointestinal: soft, normal bowel sounds Extremities: no edema Hosp A/P (1) AMY (acute kidney injury) Code(s): N17.9 - ACUTE KIDNEY FAILURE, UNSPECIFIED Status: Resolved (2) COVID-19 Code(s): U07.1 - COVID-19 Status: Acute (3) UTI (urinary tract infection) Status: Acute Qualifiers: Urinary tract infection type: acute cystitis (4) DM (diabetes mellitus), type 2, uncontrolled Code(s): E11.65 - TYPE 2 DIABETES MELLITUS WITH HYPERGLYCEMIA Status: Chronic Qualifiers: Glycemic state: with hyperglycemia Qualified Code(s): E11.65 - Type 2 diabetes mellitus with hyperglycemia (5) HTN (hypertension) Code(s): I10 - ESSENTIAL (PRIMARY) HYPERTENSION Status: Chronic Qualifiers: Hypertension type: essential hypertension Qualified Code(s): I10 - Essential (primary) hypertension - Plan COVID pos-asymptomatic, no tx indicated UTI- e coli,on omnicef cont selected home meds placement
[2020-04-13] MEDS: Polyethylene Glycol 3350 17 GM Packet PO SCH (08:52)
[2020-04-13] MEDS: INSULIN GLARGINE SC SCH (08:52)
[2020-04-13] MEDS: PRE FILLED SC SCH (08:52)
[2020-04-13] MEDS: Ascorbic Acid 500 mg Chewable Tablet PO SCH (08:53)
[2020-04-13] MEDS: Alogliptin 25 MG TAB PO SCH (08:53)
[2020-04-13] MEDS: Zinc Sulfate 220 MG CAP PO SCH (08:53)
[2020-04-13] MEDS: Cefdinir 300 MG CAP PO SCH ×2 (08:53→20:21)
[2020-04-13] MEDS: levETIRAcetam 500 MG TAB PO SCH ×2 (08:53→20:21)
[2020-04-13] MEDS: metFORMIN XR 500 MG TAB PO SCH ×2 (08:54→16:52)
[2020-04-13] MEDS: Heparin 5,000 UNITS/ML VIAL SC SCH ×3 (08:54→20:22)
[2020-04-13] MEDS: Diclofenac 1% 100 GM GEL TP SCH ×4 (08:54→20:20)
[2020-04-13] MEDS: Amlodipine 5 MG TAB PO SCH (08:57)
[2020-04-13] MEDS: Cholecalciferol (Vitamin D3) 400 UNITS TAB PO SCH (09:03)
[2020-04-13] MEDS: Nateglinide 120 MG TAB PO SCH ×2 (12:12→16:52)
[2020-04-13] MEDS: Acetaminophen 325 MG TAB PO PRN (20:21)
[2020-04-14] MEDS: HumaLOG 300 UNITS/3 ML VIAL SC PRN ×2 (06:09→12:49)
[2020-04-14] MEDS: Polyethylene Glycol 3350 17 GM Packet PO SCH (09:22)
[2020-04-14] MEDS: metFORMIN XR 500 MG TAB PO SCH ×2 (09:27→17:20)
[2020-04-14] MEDS: PRE FILLED SC SCH (09:28)
[2020-04-14] MEDS: Cholecalciferol (Vitamin D3) 400 UNITS TAB PO SCH (09:28)
[2020-04-14] MEDS: INSULIN GLARGINE SC SCH (09:28)
[2020-04-14] MEDS: Ascorbic Acid 500 mg Chewable Tablet PO SCH (09:28)
[2020-04-14] MEDS: Heparin 5,000 UNITS/ML VIAL SC SCH ×3 (09:28→21:36)
[2020-04-14] MEDS: Cefdinir 300 MG CAP PO SCH ×2 (09:28→21:28)
[2020-04-14] MEDS: Alogliptin 25 MG TAB PO SCH (09:28)
[2020-04-14] MEDS: Zinc Sulfate 220 MG CAP PO SCH (09:29)
[2020-04-14] MEDS: Nateglinide 120 MG TAB PO SCH ×3 (09:29→16:04)
[2020-04-14] MEDS: Amlodipine 5 MG TAB PO SCH (09:29)
[2020-04-14] MEDS: levETIRAcetam 500 MG TAB PO SCH ×2 (09:30→21:28)
[2020-04-14] MEDS: Diclofenac 1% 100 GM GEL TP SCH ×4 (09:30→21:29)
--- NOTE | 2020-04-14 14:36 | PDOC.HOSPP ---
- Subjective Encounter Date: 04/14/20 Encounter Time: 14:34 Subjective: stable, no overnite events - Objective Vital Signs & Weight: Vital Signs (12 hours) Temp Pulse Resp BP Pulse Ox 04/14/20 09:29 99 04/14/20 08:00 95 04/14/20 07:06 98.1 F 99 20 134/76 96 Weight Admit Weight 160 lb 4.417 oz Weight 160 lb 4.417 oz I&O: 04/13/20 04/14/20 04/15/20 06:59 06:59 06:59 Intake Total 1680 480 Output Total 950 950 Balance 730 -470 Result Diagrams: 04/11/20 07:55 04/11/20 07:55 Additional Labs: Accuchecks 04/14/20 04/14/20 04/13/20 12:11 05:37 20:18 POC Glucose 313 H 232 H 343 H 04/13/20 15:59 POC Glucose 246 H Hospitalist ROS - Medication Medications: Active Medications Generic Name Dose Route Start Last Admin Trade Name Freq PRN Reason Stop Dose Admin Acetaminophen 650 mg 04/09/20 00:27 04/13/20 20:21 Acetaminophen 325 Mg Tab PO 650 mg Q4H PRN Administration Headache/Fever/Mild Pain (1-3) Alogliptin Benzoate 25 mg 04/10/20 09:00 04/14/20 09:28 Alogliptin 25 Mg Tab PO 25 mg DAILY CAIT Administration Amlodipine Besylate 2.5 mg 04/10/20 09:00 04/14/20 09:29 Amlodipine 5 Mg Tab PO 2.5 mg DAILY CAIT Administration Ascorbic Acid 1,000 mg 04/09/20 09:00 04/14/20 09:28 Ascorbic Acid 500 Mg Chewable Tablet PO 1,000 mg DAILY CAIT Administration Cefdinir 300 mg 04/11/20 21:00 04/14/20 09:28 Cefdinir 300 Mg Cap PO 300 mg BID CAIT Administration Cholecalciferol 400 units 04/09/20 09:00 04/14/20 09:28 Cholecalciferol (Vitamin D3) 400 Units Tab PO 400 units DAILY CAIT Administration Diclofenac Sodium 2 gm 04/10/20 17:00 04/14/20 12:49 Diclofenac 1% 100 Gm Gel TP 2 gm QID CAIT Administration Heparin Sodium (Porcine) 5,000 units 04/09/20 09:00 04/14/20 09:28 Heparin 5,000 Units/Ml Vial SC 5,000 units TID CAIT Administration Insulin Glargine 13 units/ 0.13 mls @ 0 mls/hr 04/11/20 09:00 04/14/20 09:28 Miscellaneous Medication SC 0.13 mls QAM CAIT Administration Insulin Human Lispro 0 units 04/09/20 11:37 04/13/20 20:22 Humalog 300 Units/3 Ml Vial SC 5 unit .BEDTIME SLIDING SC PRN Administration Bedtime Correctional Scale Insulin Human Lispro 0 units 04/10/20 13:36 04/14/20 12:49 Humalog 300 Units/3 Ml Vial SC 8 unit .MODERATE SLIDING SC PRN Administration Moderate Correctional Scale Levetiracetam 500 mg 04/13/20 09:00 04/14/20 09:30 Levetiracetam 500 Mg Tab PO 500 mg BID CAIT Administration Metformin HCl 500 mg 04/09/20 18:00 04/14/20 09:27 Metformin Xr 500 Mg Tab PO 500 mg BID-PC CAIT Administration Nateglinide 120 mg 04/13/20 11:30 04/14/20 12:49 Nateglinide 120 Mg Tab PO 120 mg AC CAIT Administration Polyethylene Glycol 17 gm 04/12/20 09:00 04/14/20 09:22 Polyethylene Glycol 3350 17 Gm Packet PO Not Given DAILY CAIT Sodium Chloride 10 ml 04/09/20 01:00 04/09/20 23:36 Flush - Normal Saline 10 Ml Syringe IVF 10 ml PRN PRN Administration Saline Flush Zinc Sulfate 220 mg 04/09/20 09:00 04/14/20 09:29 Zinc Sulfate 220 Mg Cap PO 220 mg DAILY CAIT Administration Hospitalist Exam Vitals: Vital Signs (12 hours) Temp Pulse Resp BP Pulse Ox 04/14/20 09:29 99 04/14/20 08:00 95 04/14/20 07:06 98.1 F 99 20 134/76 96 Weight Admit Weight 160 lb 4.417 oz Weight 160 lb 4.417 oz General Appearance: awake alert Neck: no JVD Heart: RRR Respiratory: CTAB Gastrointestinal: soft, normal bowel sounds Extremities: 1+ LE edema Hosp A/P (1) AMY (acute kidney injury) Code(s): N17.9 - ACUTE KIDNEY FAILURE, UNSPECIFIED Status: Resolved (2) COVID-19 Code(s): U07.1 - COVID-19 Status: Acute (3) UTI (urinary tract infection) Status: Acute Qualifiers: Urinary tract infection type: acute cystitis (4) DM (diabetes mellitus), type 2, uncontrolled Code(s): E11.65 - TYPE 2 DIABETES MELLITUS WITH HYPERGLYCEMIA Status: Chronic Qualifiers: Glycemic state: with hyperglycemia Qualified Code(s): E11.65 - Type 2 diabetes mellitus with hyperglycemia (5) HTN (hypertension) Code(s): I10 - ESSENTIAL (PRIMARY) HYPERTENSION Status: Chronic Qualifiers: Hypertension type: essential hypertension Qualified Code(s): I10 - Essential (primary) hypertension - Plan COVID pos-asymptomatic, no tx indicated UTI- e coli,on omnicef cont selected home meds placement will no be available until 04/18/20
[2020-04-15] MEDS: HumaLOG 300 UNITS/3 ML VIAL SC PRN ×3 (05:49→21:02)
[2020-04-15] MEDS: Ascorbic Acid 500 mg Chewable Tablet PO SCH (08:26)
[2020-04-15] MEDS: Alogliptin 25 MG TAB PO SCH (08:26)
[2020-04-15] MEDS: Heparin 5,000 UNITS/ML VIAL SC SCH ×3 (08:26→20:59)
[2020-04-15] MEDS: Zinc Sulfate 220 MG CAP PO SCH (08:27)
[2020-04-15] MEDS: Cefdinir 300 MG CAP PO SCH ×2 (08:27→20:59)
[2020-04-15] MEDS: levETIRAcetam 500 MG TAB PO SCH ×2 (08:27→20:59)
[2020-04-15] MEDS: Amlodipine 5 MG TAB PO SCH (08:27)
[2020-04-15] MEDS: Cholecalciferol (Vitamin D3) 400 UNITS TAB PO SCH (08:27)
[2020-04-15] MEDS: Polyethylene Glycol 3350 17 GM Packet PO SCH (08:28)
[2020-04-15] MEDS: Diclofenac 1% 100 GM GEL TP SCH ×4 (08:28→21:19)
[2020-04-15] MEDS: Nateglinide 120 MG TAB PO SCH ×3 (08:28→17:02)
[2020-04-15] MEDS: metFORMIN XR 500 MG TAB PO SCH ×2 (08:28→17:02)
[2020-04-15] MEDS: INSULIN GLARGINE SC SCH (08:37)
[2020-04-15] MEDS: PRE FILLED SC SCH (08:37)
--- NOTE | 2020-04-15 16:20 | PDOC.HOSPP ---
- Subjective Encounter Date: 04/15/20 Encounter Time: 16:17 non-verbal Subjective: Patient seen and evaluated today. 84-year-old who was admitted with Covid pneumonia who is doing really well. She likely has some memory issues as she does not participate in this assessment. However she is pending placement following this hospitalization. We anticipate this to happen by Saturday, April 18, 2020. - Objective Vital Signs & Weight: Vital Signs (12 hours) Temp Pulse Resp BP Pulse Ox 04/15/20 12:44 99.0 F 89 20 142/84 H 91 L 04/15/20 08:27 93 04/15/20 07:05 98.9 F 94 20 138/84 91 L Weight Admit Weight 160 lb 4.417 oz Weight 160 lb 4.417 oz I&O: 04/14/20 04/15/20 04/16/20 06:59 06:59 06:59 Intake Total 480 Output Total 950 Balance -470 Result Diagrams: 04/11/20 07:55 04/11/20 07:55 Additional Labs: Accuchecks 04/15/20 04/15/20 04/14/20 12:04 04:38 20:21 POC Glucose 235 H 188 H 198 H 04/14/20 17:00 POC Glucose 148 H Radiology Reviewed by me: Yes EKG Reviewed by me: Yes Hospitalist ROS - Review of Systems ROS unobtainable: due to mental status Constitutional: reports: sweats, weakness, malaise Gastrointestinal: reports: nausea, vomiting Neurological: reports: confusion - Medication Medications: Active Medications Generic Name Dose Route Start Last Admin Trade Name Freq PRN Reason Stop Dose Admin Acetaminophen 650 mg 04/09/20 00:27 04/13/20 20:21 Acetaminophen 325 Mg Tab PO 650 mg Q4H PRN Administration Headache/Fever/Mild Pain (1-3) Alogliptin Benzoate 25 mg 04/10/20 09:00 04/15/20 08:26 Alogliptin 25 Mg Tab PO 25 mg DAILY CAIT Administration Amlodipine Besylate 2.5 mg 04/10/20 09:00 04/15/20 08:27 Amlodipine 5 Mg Tab PO 2.5 mg DAILY CAIT Administration Ascorbic Acid 1,000 mg 04/09/20 09:00 04/15/20 08:26 Ascorbic Acid 500 Mg Chewable Tablet PO 1,000 mg DAILY CAIT Administration Cefdinir 300 mg 04/11/20 21:00 04/15/20 08:27 Cefdinir 300 Mg Cap PO 300 mg BID CAIT Administration Cholecalciferol 400 units 04/09/20 09:00 04/15/20 08:27 Cholecalciferol (Vitamin D3) 400 Units Tab PO 400 units DAILY CAIT Administration Diclofenac Sodium 2 gm 04/10/20 17:00 04/15/20 12:27 Diclofenac 1% 100 Gm Gel TP 2 gm QID CAIT Administration Heparin Sodium (Porcine) 5,000 units 04/09/20 09:00 04/15/20 15:26 Heparin 5,000 Units/Ml Vial SC 5,000 units TID CAIT Administration Insulin Glargine 13 units/ 0.13 mls @ 0 mls/hr 04/11/20 09:00 04/15/20 08:37 Miscellaneous Medication SC 0.13 mls QAM CAIT Administration Insulin Human Lispro 0 units 04/09/20 11:37 04/13/20 20:22 Humalog 300 Units/3 Ml Vial SC 5 unit .BEDTIME SLIDING SC PRN Administration Bedtime Correctional Scale Insulin Human Lispro 0 units 04/10/20 13:36 04/15/20 12:26 Humalog 300 Units/3 Ml Vial SC 4 unit .MODERATE SLIDING SC PRN Administration Moderate Correctional Scale Levetiracetam 500 mg 04/13/20 09:00 04/15/20 08:27 Levetiracetam 500 Mg Tab PO 500 mg BID CAIT Administration Metformin HCl 500 mg 04/09/20 18:00 04/15/20 08:28 Metformin Xr 500 Mg Tab PO 500 mg BID-PC CAIT Administration Nateglinide 120 mg 04/13/20 11:30 04/15/20 12:30 Nateglinide 120 Mg Tab PO 120 mg AC CAIT Administration Polyethylene Glycol 17 gm 04/12/20 09:00 04/15/20 08:28 Polyethylene Glycol 3350 17 Gm Packet PO 17 gm DAILY CAIT Administration Sodium Chloride 10 ml 04/09/20 01:00 04/09/20 23:36 Flush - Normal Saline 10 Ml Syringe IVF 10 ml PRN PRN Administration Saline Flush Zinc Sulfate 220 mg 04/09/20 09:00 04/15/20 08:27 Zinc Sulfate 220 Mg Cap PO 220 mg DAILY CAIT Administration Hospitalist Exam Vitals: Vital Signs (12 hours) Temp Pulse Resp BP Pulse Ox 04/15/20 12:44 99.0 F 89 20 142/84 H 91 L 04/15/20 08:27 93 04/15/20 07:05 98.9 F 94 20 138/84 91 L Weight Admit Weight 160 lb 4.417 oz Weight 160 lb 4.417 oz General Appearance: NAD, awake alert Eye: PERRL, anicteric sclera ENT: normocephalic atraumatic, no oropharyngeal lesions Neck: supple, symmetric, no JVD, no thyromegaly, no lymphadenopathy Heart: RRR, no murmur, no gallops, no rubs, normal peripheral pulses Respiratory: CTAB, no wheezes, no rales, no ronchi Gastrointestinal: soft, non-tender, non-distended, normal bowel sounds Neurological: cranial nerve grossly intact, normal sensation to touch Psychiatric: normal affect, normal behavior, A&O x 3 Hosp A/P (1) COVID-19 Code(s): U07.1 - COVID-19 Status: Acute (2) Generalized weakness Code(s): R53.1 - WEAKNESS Status: Acute (3) UTI (urinary tract infection) Status: Acute Qualifiers: Urinary tract infection type: acute cystitis (4) DM (diabetes mellitus), type 2, uncontrolled Code(s): E11.65 - TYPE 2 DIABETES MELLITUS WITH HYPERGLYCEMIA Status: Chronic Qualifiers: Glycemic state: with hyperglycemia Qualified Code(s): E11.65 - Type 2 diabetes mellitus with hyperglycemia (5) AMY (acute kidney injury) Code(s): N17.9 - ACUTE KIDNEY FAILURE, UNSPECIFIED Status: Resolved - Plan old records reviewed/req, PT/OT [facility] Clinically she is stable to transfer once she is approved.
[2020-04-16] MEDS: PRE FILLED SC SCH (08:27)
[2020-04-16] MEDS: INSULIN GLARGINE SC SCH (08:27)
[2020-04-16] MEDS: Nateglinide 120 MG TAB PO SCH ×3 (08:27→16:36)
[2020-04-16] MEDS: Cholecalciferol (Vitamin D3) 400 UNITS TAB PO SCH (08:27)
[2020-04-16] MEDS: metFORMIN XR 500 MG TAB PO SCH ×2 (08:27→16:36)
[2020-04-16] MEDS: Polyethylene Glycol 3350 17 GM Packet PO SCH (08:27)
[2020-04-16] MEDS: Ascorbic Acid 500 mg Chewable Tablet PO SCH (08:28)
[2020-04-16] MEDS: Heparin 5,000 UNITS/ML VIAL SC SCH ×3 (08:28→20:51)
[2020-04-16] MEDS: Zinc Sulfate 220 MG CAP PO SCH (08:28)
[2020-04-16] MEDS: levETIRAcetam 500 MG TAB PO SCH ×2 (08:28→20:50)
[2020-04-16] MEDS: Alogliptin 25 MG TAB PO SCH (08:28)
[2020-04-16] MEDS: Amlodipine 5 MG TAB PO SCH (08:28)
[2020-04-16] MEDS: Cefdinir 300 MG CAP PO SCH ×2 (08:28→20:50)
[2020-04-16] MEDS: Diclofenac 1% 100 GM GEL TP SCH ×4 (08:29→20:50)
[2020-04-16] MEDS: HumaLOG 300 UNITS/3 ML VIAL SC PRN ×3 (12:34→20:51)
--- NOTE | 2020-04-16 15:14 | PDOC.HOSPP ---
- Subjective Encounter Date: 04/16/20 Encounter Time: 15:12 Subjective: Patient seen and examined today. She is an 84-year-old admitted with COVID-19 pneumonia who is doing really well. She is pending placement at a nursing home facility. - Objective Vital Signs & Weight: Vital Signs (12 hours) Temp Pulse Resp BP Pulse Ox 04/16/20 08:28 92 04/16/20 08:00 98.4 F 100 20 144/85 H 91 L 04/16/20 04:00 98.2 F Weight Admit Weight 160 lb 4.417 oz Weight 160 lb 4.417 oz Result Diagrams: 04/11/20 07:55 04/11/20 07:55 Additional Labs: Accuchecks 04/16/20 04/16/20 04/15/20 11:38 04:43 20:50 POC Glucose 334 H 147 H 237 H Radiology Reviewed by me: Yes EKG Reviewed by me: Yes Hospitalist ROS - Review of Systems Respiratory: reports: cough, dry - Medication Medications: Active Medications Generic Name Dose Route Start Last Admin Trade Name Freq PRN Reason Stop Dose Admin Acetaminophen 650 mg 04/09/20 00:27 04/13/20 20:21 Acetaminophen 325 Mg Tab PO 650 mg Q4H PRN Administration Headache/Fever/Mild Pain (1-3) Alogliptin Benzoate 25 mg 04/10/20 09:00 04/16/20 08:28 Alogliptin 25 Mg Tab PO 25 mg DAILY CAIT Administration Amlodipine Besylate 2.5 mg 04/10/20 09:00 04/16/20 08:28 Amlodipine 5 Mg Tab PO 2.5 mg DAILY CAIT Administration Ascorbic Acid 1,000 mg 04/09/20 09:00 04/16/20 08:28 Ascorbic Acid 500 Mg Chewable Tablet PO 1,000 mg DAILY CAIT Administration Cefdinir 300 mg 04/11/20 21:00 04/16/20 08:28 Cefdinir 300 Mg Cap PO 300 mg BID CAIT Administration Cholecalciferol 400 units 04/09/20 09:00 04/16/20 08:27 Cholecalciferol (Vitamin D3) 400 Units Tab PO 400 units DAILY CAIT Administration Diclofenac Sodium 2 gm 04/10/20 17:00 04/16/20 12:33 Diclofenac 1% 100 Gm Gel TP 2 gm QID CAIT Administration Heparin Sodium (Porcine) 5,000 units 04/09/20 09:00 04/16/20 08:28 Heparin 5,000 Units/Ml Vial SC 5,000 units TID CAIT Administration Insulin Glargine 13 units/ 0.13 mls @ 0 mls/hr 04/11/20 09:00 04/16/20 08:27 Miscellaneous Medication SC 0.13 mls QAM CAIT Administration Insulin Human Lispro 0 units 04/09/20 11:37 04/15/20 21:02 Humalog 300 Units/3 Ml Vial SC 2 unit .BEDTIME SLIDING SC PRN Administration Bedtime Correctional Scale Insulin Human Lispro 0 units 04/10/20 13:36 04/16/20 12:34 Humalog 300 Units/3 Ml Vial SC 8 unit .MODERATE SLIDING SC PRN Administration Moderate Correctional Scale Levetiracetam 500 mg 04/13/20 09:00 04/16/20 08:28 Levetiracetam 500 Mg Tab PO 500 mg BID CAIT Administration Metformin HCl 500 mg 04/09/20 18:00 04/16/20 08:27 Metformin Xr 500 Mg Tab PO 500 mg BID-PC CAIT Administration Nateglinide 120 mg 04/13/20 11:30 04/16/20 12:33 Nateglinide 120 Mg Tab PO 120 mg AC CAIT Administration Polyethylene Glycol 17 gm 04/12/20 09:00 04/16/20 08:27 Polyethylene Glycol 3350 17 Gm Packet PO 17 gm DAILY CAIT Administration Sodium Chloride 10 ml 04/09/20 01:00 04/09/20 23:36 Flush - Normal Saline 10 Ml Syringe IVF 10 ml PRN PRN Administration Saline Flush Zinc Sulfate 220 mg 04/09/20 09:00 04/16/20 08:28 Zinc Sulfate 220 Mg Cap PO 220 mg DAILY CAIT Administration Hospitalist Exam Vitals: Vital Signs (12 hours) Temp Pulse Resp BP Pulse Ox 04/16/20 08:28 92 04/16/20 08:00 98.4 F 100 20 144/85 H 91 L 04/16/20 04:00 98.2 F Weight Admit Weight 160 lb 4.417 oz Weight 160 lb 4.417 oz General Appearance: awake alert, ill appearing Eye: PERRL, anicteric sclera ENT: normocephalic atraumatic, no oropharyngeal lesions Neck: supple, symmetric, no JVD, no thyromegaly Heart: RRR, no murmur, no gallops, no rubs Respiratory: CTAB, no wheezes, no rales, no ronchi, normal chest expansion Gastrointestinal: soft, non-tender, non-distended, normal bowel sounds, no palpable masses Neurological: cranial nerve grossly intact Psychiatric: normal affect, normal behavior, oriented to person, not oriented Hosp A/P (1) COVID-19 Code(s): U07.1 - COVID-19 Status: Acute (2) Generalized weakness Code(s): R53.1 - WEAKNESS Status: Acute (3) UTI (urinary tract infection) Status: Acute Qualifiers: Urinary tract infection type: acute cystitis (4) DM (diabetes mellitus), type 2, uncontrolled Code(s): E11.65 - TYPE 2 DIABETES MELLITUS WITH HYPERGLYCEMIA Status: Chronic Qualifiers: Glycemic state: with hyperglycemia Qualified Code(s): E11.65 - Type 2 diabetes mellitus with hyperglycemia (5) AMY (acute kidney injury) Code(s): N17.9 - ACUTE KIDNEY FAILURE, UNSPECIFIED Status: Resolved - Plan She is pending transfer to nursing home facility. Clinically she is stable to transfer once she is approved. 04/16/2020. Continue current management plan. Plan for placement at a nursing home facility.
[2020-04-17 05:27] LABS: #Eosinphils 0.1 thou/uL (0.0-0.7); #Lymphocytes 1.7 thou/uL (1.20-3.40); #Monocytes 0.8 thou/uL (0.11-0.59); #Neutrophils 7.7 thou/uL (1.40-6.50); %Basophils 0.3 % (0.0-1.0); %Eosinophils 0.9 % (0.0-10.0); %Lymphocytes 16.5 % (21.0-51.0); %Monocytes 8.1 % (0.0-10.0); %Neutrophils 74.3 % (42.0-75.0); Hemoglobin 11.9 g/dL (12.0-16.0); Mean Corpuscular HGB CONC 32.3 g/dL (32.0-36.0); Mean Corpuscular Hemoglobin 31.1 pg (27.0-31.0); Mean Corpuscular Volume 96.1 fL (78.0-98.0); Mean Platelet Volume 7.3 fL (7.4-10.4); Platelet Count 386 thou/uL (130-400); RBC Distribution Width 12.4 % (11.5-14.5); Red Blood Cell (RBC) Count 3.81 mill/uL (4.20-5.40); White Blood Cell (WBC) Count 10.4 thou/uL (4.8-10.8)
[2020-04-17] MEDS: HumaLOG 300 UNITS/3 ML VIAL SC PRN ×3 (05:35→17:20)
[2020-04-17 05:53] LABS: Anion Gap 14 mmol/L (10-20); BUN (Urea Nitrogen) 18 mg/dL (9.8-20.1); Calc. Creatinine Clearance 48 mL/min (70-130); Calcium 8.8 mg/dL (7.8-10.44); Carbon Dioxide 23 mmol/L (23-31); Chloride 98 mmol/L (98-107); Glucose 309 mg/dL (83-110); Potassium 4.3 mmol/L (3.5-5.1); Sodium 131 mmol/L (136-145)
[2020-04-17] MEDS: PRE FILLED SC SCH (08:25)
[2020-04-17] MEDS: INSULIN GLARGINE SC SCH (08:25)
[2020-04-17] MEDS: Amlodipine 5 MG TAB PO SCH (08:26)
[2020-04-17] MEDS: levETIRAcetam 500 MG TAB PO SCH ×2 (08:26→20:29)
[2020-04-17] MEDS: Cefdinir 300 MG CAP PO SCH ×2 (08:26→20:29)
[2020-04-17] MEDS: Cholecalciferol (Vitamin D3) 400 UNITS TAB PO SCH (08:26)
[2020-04-17] MEDS: metFORMIN XR 500 MG TAB PO SCH ×2 (08:26→17:20)
[2020-04-17] MEDS: Alogliptin 25 MG TAB PO SCH (08:26)
[2020-04-17] MEDS: Zinc Sulfate 220 MG CAP PO SCH (08:26)
[2020-04-17] MEDS: Polyethylene Glycol 3350 17 GM Packet PO SCH (08:26)
[2020-04-17] MEDS: Diclofenac 1% 100 GM GEL TP SCH ×4 (08:27→20:30)
[2020-04-17] MEDS: Heparin 5,000 UNITS/ML VIAL SC SCH ×3 (08:27→20:30)
[2020-04-17] MEDS: Nateglinide 120 MG TAB PO SCH ×3 (08:27→14:46)
[2020-04-17] MEDS: Ascorbic Acid 500 mg Chewable Tablet PO SCH (08:27)
--- NOTE | 2020-04-17 11:29 | PDOC.HOSPP ---
- Subjective Encounter Date: 04/17/20 Encounter Time: 11:27 Subjective: No active issues reported. She is pending transfer to [facility] by tomorrow. - Objective Vital Signs & Weight: Vital Signs (12 hours) Temp Pulse Resp BP Pulse Ox 04/17/20 08:26 90 04/17/20 08:00 98.3 F 90 20 124/80 94 L Weight Admit Weight 160 lb 4.417 oz Weight 160 lb 4.417 oz I&O: 04/16/20 04/17/20 04/18/20 06:59 06:59 06:59 Intake Total 600 Balance 600 Result Diagrams: 04/17/20 04:34 04/17/20 04:34 Additional Labs: Accuchecks 04/17/20 04/16/20 04/16/20 05:34 19:58 16:18 POC Glucose 275 H 233 H 238 H 04/16/20 11:38 POC Glucose 334 H Radiology Reviewed by me: Yes EKG Reviewed by me: Yes Hospitalist ROS - Review of Systems Constitutional: reports: weakness, malaise Respiratory: reports: shortness of breath Neurological: reports: weakness - Medication Medications: Active Medications Generic Name Dose Route Start Last Admin Trade Name Freq PRN Reason Stop Dose Admin Acetaminophen 650 mg 04/09/20 00:27 04/13/20 20:21 Acetaminophen 325 Mg Tab PO 650 mg Q4H PRN Administration Headache/Fever/Mild Pain (1-3) Alogliptin Benzoate 25 mg 04/10/20 09:00 04/17/20 08:26 Alogliptin 25 Mg Tab PO 25 mg DAILY CAIT Administration Amlodipine Besylate 2.5 mg 04/10/20 09:00 04/17/20 08:26 Amlodipine 5 Mg Tab PO Not Given DAILY CAIT Ascorbic Acid 1,000 mg 04/09/20 09:00 04/17/20 08:27 Ascorbic Acid 500 Mg Chewable Tablet PO 1,000 mg DAILY CAIT Administration Cefdinir 300 mg 04/11/20 21:00 04/17/20 08:26 Cefdinir 300 Mg Cap PO 300 mg BID CAIT Administration Cholecalciferol 400 units 04/09/20 09:00 04/17/20 08:26 Cholecalciferol (Vitamin D3) 400 Units Tab PO 400 units DAILY CAIT Administration Diclofenac Sodium 2 gm 04/10/20 17:00 04/17/20 08:27 Diclofenac 1% 100 Gm Gel TP 2 gm QID CAIT Administration Heparin Sodium (Porcine) 5,000 units 04/09/20 09:00 04/17/20 08:27 Heparin 5,000 Units/Ml Vial SC 5,000 units TID CAIT Administration Insulin Glargine 13 units/ 0.13 mls @ 0 mls/hr 04/11/20 09:00 04/17/20 08:25 Miscellaneous Medication SC 0.13 mls QAM CAIT Administration Insulin Human Lispro 0 units 04/09/20 11:37 04/16/20 20:51 Humalog 300 Units/3 Ml Vial SC 2 unit .BEDTIME SLIDING SC PRN Administration Bedtime Correctional Scale Insulin Human Lispro 0 units 04/10/20 13:36 04/17/20 05:35 Humalog 300 Units/3 Ml Vial SC 6 unit .MODERATE SLIDING SC PRN Administration Moderate Correctional Scale Levetiracetam 500 mg 04/13/20 09:00 04/17/20 08:26 Levetiracetam 500 Mg Tab PO 500 mg BID CAIT Administration Metformin HCl 500 mg 04/09/20 18:00 04/17/20 08:26 Metformin Xr 500 Mg Tab PO 500 mg BID-PC CAIT Administration Nateglinide 120 mg 04/13/20 11:30 04/17/20 08:27 Nateglinide 120 Mg Tab PO 120 mg AC CAIT Administration Polyethylene Glycol 17 gm 04/12/20 09:00 04/17/20 08:26 Polyethylene Glycol 3350 17 Gm Packet PO 17 gm DAILY CAIT Administration Sodium Chloride 10 ml 04/09/20 01:00 04/09/20 23:36 Flush - Normal Saline 10 Ml Syringe IVF 10 ml PRN PRN Administration Saline Flush Zinc Sulfate 220 mg 04/09/20 09:00 04/17/20 08:26 Zinc Sulfate 220 Mg Cap PO 220 mg DAILY CAIT Administration Hospitalist Exam Vitals: Vital Signs (12 hours) Temp Pulse Resp BP Pulse Ox 04/17/20 08:26 90 04/17/20 08:00 98.3 F 90 20 124/80 94 L Weight Admit Weight 160 lb 4.417 oz Weight 160 lb 4.417 oz General Appearance: NAD, awake alert Eye: PERRL, anicteric sclera ENT: normocephalic atraumatic, no oropharyngeal lesions Neck: supple, symmetric, no JVD Heart: RRR, no murmur, no gallops, no rubs Respiratory: CTAB, no wheezes, no rales, no ronchi Gastrointestinal: soft, non-tender, non-distended, normal bowel sounds Neurological: cranial nerve grossly intact, normal sensation to touch Psychiatric: normal affect, normal behavior, oriented to person Hosp A/P (1) COVID-19 Code(s): U07.1 - COVID-19 Status: Acute (2) Generalized weakness Code(s): R53.1 - WEAKNESS Status: Acute (3) UTI (urinary tract infection) Status: Acute Qualifiers: Urinary tract infection type: acute cystitis (4) DM (diabetes mellitus), type 2, uncontrolled Code(s): E11.65 - TYPE 2 DIABETES MELLITUS WITH HYPERGLYCEMIA Status: Chronic Qualifiers: Glycemic state: with hyperglycemia Qualified Code(s): E11.65 - Type 2 diabetes mellitus with hyperglycemia (5) AMY (acute kidney injury) Code(s): N17.9 - ACUTE KIDNEY FAILURE, UNSPECIFIED Status: Resolved - Plan old records reviewed/req She is pending transfer to long-term facility. Clinically she is stable to transfer once she is approved. 04/16/2020. Continue current management plan. Plan for placement at a long-term facility. 04/17/2020. Patient has no complaints today. Placement is pending hopefully tomorrow.
[2020-04-18] MEDS ORDERED: metFORMIN 500 MG TAB ONE (07:57)
[2020-04-18] MEDS ORDERED: Alogliptin 25 MG TAB PO ONE (07:57)
[2020-04-18] MEDS ORDERED: levETIRAcetam 500 MG TAB ONE (07:58)
[2020-04-18] MEDS ORDERED: Heparin 5,000 UNITS/ML VIAL ONE ×2 (07:58→15:00)
[2020-04-18] MEDS ORDERED: Polyethylene Glycol 3350 17 GM Packet ONE (07:58)
[2020-04-18] MEDS ORDERED: Amlodipine 5 MG TAB ONE (07:59)
[2020-04-18] MEDS ORDERED: Cefdinir 300 MG CAP ONE (07:59)
[2020-04-18] MEDS ORDERED: Ascorbic Acid 500 mg Chewable Tablet ONE (08:00)
[2020-04-18] MEDS ORDERED: Zinc Sulfate 220 MG CAP ONE (08:00)
[2020-04-18] MEDS ORDERED: Cholecalciferol 1,000 UNITS (25 MCG) TAB ONE (08:00)
[2020-04-18] MEDS: Alogliptin 25 MG TAB PO SCH (08:12)
[2020-04-18] MEDS: metFORMIN XR 500 MG TAB PO SCH ×2 (08:12→18:27)
[2020-04-18] MEDS: Heparin 5,000 UNITS/ML VIAL SC SCH ×3 (08:12→20:52)
[2020-04-18] MEDS: Polyethylene Glycol 3350 17 GM Packet PO SCH (08:13)
[2020-04-18] MEDS: Amlodipine 5 MG TAB PO SCH (08:13)
[2020-04-18] MEDS: levETIRAcetam 500 MG TAB PO SCH ×2 (08:13→20:51)
[2020-04-18] MEDS: Diclofenac 1% 100 GM GEL TP SCH ×4 (08:17→20:51)
[2020-04-18] MEDS: Cefdinir 300 MG CAP PO SCH ×2 (08:17→20:51)
[2020-04-18] MEDS: Ascorbic Acid 500 mg Chewable Tablet PO SCH (08:17)
[2020-04-18] MEDS: Zinc Sulfate 220 MG CAP PO SCH (08:17)
[2020-04-18] MEDS: Nateglinide 120 MG TAB PO SCH ×3 (08:17→18:27)
[2020-04-18] MEDS: Cholecalciferol (Vitamin D3) 400 UNITS TAB PO SCH (11:18)
[2020-04-18] MEDS: HumaLOG 300 UNITS/3 ML VIAL SC PRN ×3 (12:30→21:05)
--- NOTE | 2020-04-18 13:26 | PDOC.HOSPP ---
- Subjective Encounter Date: 04/18/20 Encounter Time: 13:23 Subjective: She is pending transfer to a SNF. Will ask case management to work on placement. No other issues reported. - Objective Vital Signs & Weight: Vital Signs (12 hours) Temp Pulse Resp BP Pulse Ox 04/18/20 08:15 98.4 F 82 20 137/83 94 L Weight Admit Weight 160 lb 4.417 oz Weight 160 lb 4.417 oz I&O: 04/17/20 04/18/20 04/19/20 06:59 06:59 06:59 Intake Total 600 Balance 600 Result Diagrams: 04/17/20 04:34 04/17/20 04:34 Additional Labs: Accuchecks 04/17/20 04/17/20 19:25 16:52 POC Glucose 200 H 236 H Radiology Reviewed by me: Yes EKG Reviewed by me: Yes Hospitalist ROS - Review of Systems Constitutional: reports: weakness, malaise Respiratory: reports: cough, dry, shortness of breath Gastrointestinal: reports: nausea Neurological: reports: weakness, numbness - Medication Medications: Active Medications Generic Name Dose Route Start Last Admin Trade Name Freq PRN Reason Stop Dose Admin Acetaminophen 650 mg 04/09/20 00:27 04/13/20 20:21 Acetaminophen 325 Mg Tab PO 650 mg Q4H PRN Administration Headache/Fever/Mild Pain (1-3) Alogliptin Benzoate 25 mg 04/10/20 09:00 04/18/20 08:12 Alogliptin 25 Mg Tab PO 25 mg DAILY CAIT Administration Amlodipine Besylate 2.5 mg 04/10/20 09:00 04/18/20 08:13 Amlodipine 5 Mg Tab PO 2.5 mg DAILY CAIT Administration Ascorbic Acid 1,000 mg 04/09/20 09:00 04/18/20 08:17 Ascorbic Acid 500 Mg Chewable Tablet PO 1,000 mg DAILY CAIT Administration Cefdinir 300 mg 04/11/20 21:00 04/18/20 08:17 Cefdinir 300 Mg Cap PO 300 mg BID CAIT Administration Cholecalciferol 400 units 04/09/20 09:00 04/18/20 11:18 Cholecalciferol (Vitamin D3) 400 Units Tab PO Not Given DAILY CAIT Diclofenac Sodium 2 gm 04/10/20 17:00 04/18/20 08:17 Diclofenac 1% 100 Gm Gel TP 2 gm QID CAIT Administration Heparin Sodium (Porcine) 5,000 units 04/09/20 09:00 04/18/20 08:12 Heparin 5,000 Units/Ml Vial SC 5,000 units TID CAIT Administration Insulin Glargine 13 units/ 0.13 mls @ 0 mls/hr 04/11/20 09:00 04/17/20 08:25 Miscellaneous Medication SC 0.13 mls QAM CAIT Administration Insulin Human Lispro 0 units 04/09/20 11:37 04/16/20 20:51 Humalog 300 Units/3 Ml Vial SC 2 unit .BEDTIME SLIDING SC PRN Administration Bedtime Correctional Scale Insulin Human Lispro 0 units 04/10/20 13:36 04/18/20 12:30 Humalog 300 Units/3 Ml Vial SC 4 unit .MODERATE SLIDING SC PRN Administration Moderate Correctional Scale Levetiracetam 500 mg 04/13/20 09:00 04/18/20 08:13 Levetiracetam 500 Mg Tab PO 500 mg BID CAIT Administration Metformin HCl 500 mg 04/09/20 18:00 04/18/20 08:12 Metformin Xr 500 Mg Tab PO 500 mg BID-PC CAIT Administration Nateglinide 120 mg 04/13/20 11:30 04/18/20 12:30 Nateglinide 120 Mg Tab PO 120 mg AC CAIT Administration Polyethylene Glycol 17 gm 04/12/20 09:00 04/18/20 08:13 Polyethylene Glycol 3350 17 Gm Packet PO 17 gm DAILY CAIT Administration Sodium Chloride 10 ml 04/09/20 01:00 04/09/20 23:36 Flush - Normal Saline 10 Ml Syringe IVF 10 ml PRN PRN Administration Saline Flush Zinc Sulfate 220 mg 04/09/20 09:00 04/18/20 08:17 Zinc Sulfate 220 Mg Cap PO 220 mg DAILY ACIT Administration Hospitalist Exam Vitals: Vital Signs (12 hours) Temp Pulse Resp BP Pulse Ox 04/18/20 08:15 98.4 F 82 20 137/83 94 L Weight Admit Weight 160 lb 4.417 oz Weight 160 lb 4.417 oz General Appearance: NAD, awake alert Eye: PERRL, anicteric sclera ENT: normocephalic atraumatic, no oropharyngeal lesions Neck: supple, symmetric, no JVD, no thyromegaly Heart: RRR, no murmur, no gallops Respiratory: CTAB, no wheezes, no rales, no ronchi, normal chest expansion Gastrointestinal: soft, non-tender, non-distended, normal bowel sounds Neurological: cranial nerve grossly intact, normal sensation to touch Musculoskeletal: normal tone, normal strength Psychiatric: normal affect, normal behavior, A&O x 3 Hosp A/P (1) COVID-19 Code(s): U07.1 - COVID-19 Status: Acute (2) UTI (urinary tract infection) Status: Acute Qualifiers: Urinary tract infection type: acute cystitis (3) Generalized weakness Code(s): R53.1 - WEAKNESS Status: Acute (4) DM (diabetes mellitus), type 2, uncontrolled Code(s): E11.65 - TYPE 2 DIABETES MELLITUS WITH HYPERGLYCEMIA Status: Chronic Qualifiers: Glycemic state: with hyperglycemia Qualified Code(s): E11.65 - Type 2 diabetes mellitus with hyperglycemia (5) AMY (acute kidney injury) Code(s): N17.9 - ACUTE KIDNEY FAILURE, UNSPECIFIED Status: Resolved - Plan plan discussed w/ family, PT/OT [facility] Clinically she is stable to transfer once she is approved. 04/16/2020. Continue current management plan. Plan for [facility]. 04/17/2020. Patient has no complaints today. Placement is pending hopefully tomorrow.
[2020-04-18] MEDS: PRE FILLED SC SCH (15:13)
[2020-04-18] MEDS: INSULIN GLARGINE SC SCH (15:13)
[2020-04-19] MEDS: HumaLOG 300 UNITS/3 ML VIAL SC PRN ×4 (05:58→20:45)
[2020-04-19] MEDS: PRE FILLED SC SCH (08:23)
[2020-04-19] MEDS: INSULIN GLARGINE SC SCH (08:23)
[2020-04-19] MEDS: Ascorbic Acid 500 mg Chewable Tablet PO SCH (08:24)
[2020-04-19] MEDS: Nateglinide 120 MG TAB PO SCH ×3 (08:24→17:41)
[2020-04-19] MEDS: levETIRAcetam 500 MG TAB PO SCH ×2 (08:24→20:36)
[2020-04-19] MEDS: Alogliptin 25 MG TAB PO SCH (08:24)
[2020-04-19] MEDS: Zinc Sulfate 220 MG CAP PO SCH (08:24)
[2020-04-19] MEDS: Cholecalciferol (Vitamin D3) 400 UNITS TAB PO SCH (08:24)
[2020-04-19] MEDS: Cefdinir 300 MG CAP PO SCH ×2 (08:24→20:34)
[2020-04-19] MEDS: Amlodipine 5 MG TAB PO SCH (08:24)
[2020-04-19] MEDS: Diclofenac 1% 100 GM GEL TP SCH ×4 (08:25→20:34)
[2020-04-19] MEDS: Heparin 5,000 UNITS/ML VIAL SC SCH ×3 (08:26→20:35)
[2020-04-19] MEDS: Polyethylene Glycol 3350 17 GM Packet PO SCH (08:28)
[2020-04-19] MEDS: metFORMIN XR 500 MG TAB PO SCH ×2 (09:44→17:41)
--- NOTE | 2020-04-19 14:37 | PDOC.HOSPP ---
- Subjective Encounter Date: 04/19/20 Encounter Time: 14:36 Subjective: 84-year-old female seen and examined at the bedside today. She remains clinically stable and is pending transfer to skilled facility. She can go whenever a bed becomes available. - Objective Vital Signs & Weight: Vital Signs (12 hours) Temp Pulse Resp BP Pulse Ox 04/19/20 08:45 95 04/19/20 07:29 98.2 F 82 16 138/82 95 Weight Admit Weight 160 lb 4.417 oz Weight 160 lb 4.417 oz I&O: 04/18/20 04/19/20 04/20/20 06:59 06:59 06:59 Intake Total 1440 Output Total 250 Balance 1190 Result Diagrams: 04/17/20 04:34 04/17/20 04:34 Additional Labs: Accuchecks 04/19/20 04/19/20 04/18/20 10:56 05:34 21:03 POC Glucose 299 H 193 H 342 H 04/18/20 04/15/20 16:50 15:32 POC Glucose 208 H 178 H Radiology Reviewed by me: Yes EKG Reviewed by me: Yes Hospitalist ROS - Review of Systems Constitutional: reports: weakness, malaise - Medication Medications: Active Medications Generic Name Dose Route Start Last Admin Trade Name Freq PRN Reason Stop Dose Admin Acetaminophen 650 mg 04/09/20 00:27 04/13/20 20:21 Acetaminophen 325 Mg Tab PO 650 mg Q4H PRN Administration Headache/Fever/Mild Pain (1-3) Alogliptin Benzoate 25 mg 04/10/20 09:00 04/19/20 08:24 Alogliptin 25 Mg Tab PO 25 mg DAILY CAIT Administration Amlodipine Besylate 2.5 mg 04/10/20 09:00 04/19/20 08:24 Amlodipine 5 Mg Tab PO 2.5 mg DAILY CAIT Administration Ascorbic Acid 1,000 mg 04/09/20 09:00 04/19/20 08:24 Ascorbic Acid 500 Mg Chewable Tablet PO 1,000 mg DAILY CAIT Administration Cefdinir 300 mg 04/11/20 21:00 04/19/20 08:24 Cefdinir 300 Mg Cap PO 300 mg BID CAIT Administration Cholecalciferol 400 units 04/09/20 09:00 04/19/20 08:24 Cholecalciferol (Vitamin D3) 400 Units Tab PO 400 units DAILY CAIT Administration Diclofenac Sodium 2 gm 04/10/20 17:00 04/19/20 12:11 Diclofenac 1% 100 Gm Gel TP 2 gm QID CAIT Administration Heparin Sodium (Porcine) 5,000 units 04/09/20 09:00 04/19/20 08:26 Heparin 5,000 Units/Ml Vial SC 5,000 units TID CAIT Administration Insulin Glargine 13 units/ 0.13 mls @ 0 mls/hr 04/11/20 09:00 04/19/20 08:23 Miscellaneous Medication SC 0.13 mls QAM CAIT Administration Insulin Human Lispro 0 units 04/09/20 11:37 04/18/20 21:05 Humalog 300 Units/3 Ml Vial SC 4 unit .BEDTIME SLIDING SC PRN Administration Bedtime Correctional Scale Insulin Human Lispro 0 units 04/10/20 13:36 04/19/20 12:10 Humalog 300 Units/3 Ml Vial SC 6 unit .MODERATE SLIDING SC PRN Administration Moderate Correctional Scale Levetiracetam 500 mg 04/13/20 09:00 04/19/20 08:24 Levetiracetam 500 Mg Tab PO 500 mg BID CAIT Administration Metformin HCl 500 mg 04/09/20 18:00 04/19/20 09:44 Metformin Xr 500 Mg Tab PO 500 mg BID-PC CAIT Administration Nateglinide 120 mg 04/13/20 11:30 04/19/20 12:10 Nateglinide 120 Mg Tab PO 120 mg AC CAIT Administration Polyethylene Glycol 17 gm 04/12/20 09:00 04/19/20 08:28 Polyethylene Glycol 3350 17 Gm Packet PO 17 gm DAILY CAIT Administration Sodium Chloride 10 ml 04/09/20 01:00 04/09/20 23:36 Flush - Normal Saline 10 Ml Syringe IVF 10 ml PRN PRN Administration Saline Flush Zinc Sulfate 220 mg 04/09/20 09:00 04/19/20 08:24 Zinc Sulfate 220 Mg Cap PO 220 mg DAILY CAIT Administration Hospitalist Exam Vitals: Vital Signs (12 hours) Temp Pulse Resp BP Pulse Ox 04/19/20 08:45 95 04/19/20 07:29 98.2 F 82 16 138/82 95 Weight Admit Weight 160 lb 4.417 oz Weight 160 lb 4.417 oz General Appearance: NAD, awake alert Eye: PERRL, anicteric sclera ENT: normocephalic atraumatic, no oropharyngeal lesions Neck: supple, symmetric, no JVD, no thyromegaly Heart: RRR, no murmur Respiratory: CTAB, no wheezes, no rales, no ronchi Gastrointestinal: soft, non-tender, non-distended, normal bowel sounds Neurological: cranial nerve grossly intact Psychiatric: normal affect, normal behavior, A&O x 3 Hosp A/P (1) COVID-19 Code(s): U07.1 - COVID-19 Status: Acute (2) UTI (urinary tract infection) Status: Acute Qualifiers: Urinary tract infection type: acute cystitis (3) Generalized weakness Code(s): R53.1 - WEAKNESS Status: Acute (4) DM (diabetes mellitus), type 2, uncontrolled Code(s): E11.65 - TYPE 2 DIABETES MELLITUS WITH HYPERGLYCEMIA Status: Chronic Qualifiers: Glycemic state: with hyperglycemia Qualified Code(s): E11.65 - Type 2 diabetes mellitus with hyperglycemia (5) AMY (acute kidney injury) Code(s): N17.9 - ACUTE KIDNEY FAILURE, UNSPECIFIED Status: Resolved - Plan old records reviewed/req, plan discussed w/ family, PT/OT, respiratory therapy, incentive spirometry She is pending transfer to group home facility. Clinically she is stable to transfer once she is approved. 04/16/2020. Continue current management plan. Plan for placement at a group home facility. 04/17/2020. Patient has no complaints today. Placement is pending hopefully tomorrow.
[2020-04-20] MEDS: HumaLOG 300 UNITS/3 ML VIAL SC PRN ×2 (05:13→19:41)
[2020-04-20] MEDS: metFORMIN XR 500 MG TAB PO SCH ×2 (08:07→19:38)
[2020-04-20] MEDS: Zinc Sulfate 220 MG CAP PO SCH (08:07)
[2020-04-20] MEDS: Nateglinide 120 MG TAB PO SCH ×3 (08:07→17:03)
[2020-04-20] MEDS: Cholecalciferol (Vitamin D3) 400 UNITS TAB PO SCH (08:07)
[2020-04-20] MEDS: Cefdinir 300 MG CAP PO SCH ×2 (08:08→19:39)
[2020-04-20] MEDS: Amlodipine 5 MG TAB PO SCH (08:08)
[2020-04-20] MEDS: Alogliptin 25 MG TAB PO SCH (08:08)
[2020-04-20] MEDS: levETIRAcetam 500 MG TAB PO SCH ×2 (08:09→19:40)
[2020-04-20] MEDS: INSULIN GLARGINE SC SCH (08:09)
[2020-04-20] MEDS: PRE FILLED SC SCH (08:09)
[2020-04-20] MEDS: Heparin 5,000 UNITS/ML VIAL SC SCH ×3 (08:09→19:40)
[2020-04-20] MEDS: Diclofenac 1% 100 GM GEL TP SCH ×4 (08:10→19:39)
[2020-04-20] MEDS: Ascorbic Acid 500 mg Chewable Tablet PO SCH (08:11)
[2020-04-20] MEDS: Polyethylene Glycol 3350 17 GM Packet PO SCH (08:14)
--- NOTE | 2020-04-20 16:38 | PDOC.HOSPP ---
- Subjective Encounter Date: 04/20/20 Encounter Time: 16:36 Subjective: The patient is pending transfer to half-way facility. She reports no acute issues. Case management aware of the patient and getting in contact with the patient's facility. Continue current care. - Objective Vital Signs & Weight: Vital Signs (12 hours) Temp Pulse Resp BP Pulse Ox 04/20/20 08:08 87 04/20/20 08:00 98.0 F 87 18 108/61 94 L Weight Admit Weight 160 lb 4.417 oz Weight 160 lb 4.417 oz I&O: 04/19/20 04/20/20 04/21/20 06:59 06:59 06:59 Intake Total 1440 1230 480 Output Total 250 750 Balance 1190 480 480 Result Diagrams: 04/17/20 04:34 04/17/20 04:34 Additional Labs: Accuchecks 04/20/20 04/20/20 04/19/20 11:13 05:03 20:44 POC Glucose 167 H 211 H 253 H 04/19/20 16:11 POC Glucose 268 H Radiology Reviewed by me: Yes EKG Reviewed by me: Yes Hospitalist ROS - Review of Systems Constitutional: reports: weakness Gastrointestinal: reports: nausea Neurological: reports: weakness - Medication Medications: Active Medications Generic Name Dose Route Start Last Admin Trade Name Freq PRN Reason Stop Dose Admin Acetaminophen 650 mg 04/09/20 00:27 04/13/20 20:21 Acetaminophen 325 Mg Tab PO 650 mg Q4H PRN Administration Headache/Fever/Mild Pain (1-3) Alogliptin Benzoate 25 mg 04/10/20 09:00 04/20/20 08:08 Alogliptin 25 Mg Tab PO 25 mg DAILY CAIT Administration Amlodipine Besylate 2.5 mg 04/10/20 09:00 04/20/20 08:08 Amlodipine 5 Mg Tab PO 2.5 mg DAILY CAIT Administration Ascorbic Acid 1,000 mg 04/09/20 09:00 04/20/20 08:11 Ascorbic Acid 500 Mg Chewable Tablet PO 1,000 mg DAILY CAIT Administration Cefdinir 300 mg 04/11/20 21:00 04/20/20 08:08 Cefdinir 300 Mg Cap PO 300 mg BID CAIT Administration Cholecalciferol 400 units 04/09/20 09:00 04/20/20 08:07 Cholecalciferol (Vitamin D3) 400 Units Tab PO 400 units DAILY CAIT Administration Diclofenac Sodium 2 gm 04/10/20 17:00 04/20/20 12:41 Diclofenac 1% 100 Gm Gel TP 2 gm QID CAIT Administration Heparin Sodium (Porcine) 5,000 units 04/09/20 09:00 04/20/20 15:22 Heparin 5,000 Units/Ml Vial SC 5,000 units TID CAIT Administration Insulin Glargine 13 units/ 0.13 mls @ 0 mls/hr 04/11/20 09:00 04/20/20 08:09 Miscellaneous Medication SC 0.13 mls QAM CAIT Administration Insulin Human Lispro 0 units 04/09/20 11:37 04/19/20 20:45 Humalog 300 Units/3 Ml Vial SC 3 unit .BEDTIME SLIDING SC PRN Administration Bedtime Correctional Scale Insulin Human Lispro 0 units 04/10/20 13:36 04/20/20 05:13 Humalog 300 Units/3 Ml Vial SC 4 unit .MODERATE SLIDING SC PRN Administration Moderate Correctional Scale Levetiracetam 500 mg 04/13/20 09:00 04/20/20 08:09 Levetiracetam 500 Mg Tab PO 500 mg BID CAIT Administration Metformin HCl 500 mg 04/09/20 18:00 04/20/20 08:07 Metformin Xr 500 Mg Tab PO 500 mg BID-PC CAIT Administration Nateglinide 120 mg 04/13/20 11:30 04/20/20 11:29 Nateglinide 120 Mg Tab PO 120 mg AC CAIT Administration Polyethylene Glycol 17 gm 04/12/20 09:00 04/20/20 08:14 Polyethylene Glycol 3350 17 Gm Packet PO 17 gm DAILY CAIT Administration Sodium Chloride 10 ml 04/09/20 01:00 04/09/20 23:36 Flush - Normal Saline 10 Ml Syringe IVF 10 ml PRN PRN Administration Saline Flush Zinc Sulfate 220 mg 04/09/20 09:00 04/20/20 08:07 Zinc Sulfate 220 Mg Cap PO 220 mg DAILY CAIT Administration Hospitalist Exam Vitals: Vital Signs (12 hours) Temp Pulse Resp BP Pulse Ox 04/20/20 08:08 87 04/20/20 08:00 98.0 F 87 18 108/61 94 L Weight Admit Weight 160 lb 4.417 oz Weight 160 lb 4.417 oz General Appearance: NAD, awake alert Eye: PERRL, anicteric sclera ENT: normocephalic atraumatic, no oropharyngeal lesions Neck: supple, symmetric Heart: RRR, no murmur Respiratory: CTAB, no wheezes, no rales Gastrointestinal: soft, non-tender, non-distended Neurological: cranial nerve grossly intact Psychiatric: normal affect, normal behavior Hosp A/P (1) COVID-19 Code(s): U07.1 - COVID-19 Status: Acute (2) UTI (urinary tract infection) Status: Acute Qualifiers: Urinary tract infection type: acute cystitis (3) Generalized weakness Code(s): R53.1 - WEAKNESS Status: Acute (4) DM (diabetes mellitus), type 2, uncontrolled Code(s): E11.65 - TYPE 2 DIABETES MELLITUS WITH HYPERGLYCEMIA Status: Chronic Qualifiers: Glycemic state: with hyperglycemia Qualified Code(s): E11.65 - Type 2 diabetes mellitus with hyperglycemia (5) AMY (acute kidney injury) Code(s): N17.9 - ACUTE KIDNEY FAILURE, UNSPECIFIED Status: Resolved - Plan She is pending transfer to half-way facility. Clinically she is stable to transfer once she is approved. 04/16/2020. Continue current management plan. Plan for placement at a half-way facility. 04/17/2020. Patient has no complaints today. Placement is pending hopefully tomorrow.
[2020-04-21] MEDS: Heparin 5,000 UNITS/ML VIAL SC SCH ×2 (08:14→15:15)
[2020-04-21] MEDS: levETIRAcetam 500 MG TAB PO SCH (08:15)
[2020-04-21] MEDS: metFORMIN XR 500 MG TAB PO SCH (08:15)
[2020-04-21] MEDS: Alogliptin 25 MG TAB PO SCH (08:15)
[2020-04-21] MEDS: Nateglinide 120 MG TAB PO SCH ×3 (08:15→16:54)
[2020-04-21] MEDS: Cholecalciferol (Vitamin D3) 400 UNITS TAB PO SCH (08:15)
[2020-04-21] MEDS: Ascorbic Acid 500 mg Chewable Tablet PO SCH (08:15)
[2020-04-21] MEDS: Amlodipine 5 MG TAB PO SCH (08:15)
[2020-04-21] MEDS: Cefdinir 300 MG CAP PO SCH (08:15)
[2020-04-21] MEDS: PRE FILLED SC SCH (08:16)
[2020-04-21] MEDS: INSULIN GLARGINE SC SCH (08:16)
[2020-04-21] MEDS: Zinc Sulfate 220 MG CAP PO SCH (08:16)
[2020-04-21] MEDS: Polyethylene Glycol 3350 17 GM Packet PO SCH (08:16)
[2020-04-21] MEDS: Diclofenac 1% 100 GM GEL TP SCH ×3 (08:26→16:54)
[2020-04-21 09:13] VITALS: BP 120/77; TEMP 97.7
[2020-04-21] MEDS: HumaLOG 300 UNITS/3 ML VIAL SC PRN (12:55)
--- NOTE | 2020-04-21 14:45 | PDOC.HOSPP ---
- Subjective Encounter Date: 04/21/20 Encounter Time: 14:43 Subjective: This patient is an 84-year-old woman who came from a care home with upper respiratory tract symptoms including cough, low-grade fever. Reportedly her symptoms started a few days after she received the COVID-19 vaccine. She was hospitalized for further treatment. She was found to be COVID-19 positive however she was for the most part completely asymptomatic. She had a urinary tract infection and required empiric antibiotics. The urine culture did come back with E. coli and she was appropriately treated with IV antibiotics. She never required oxygen during her hospitalization. She did well overall and is being discharged today to intermediate facility. - Objective Vital Signs & Weight: Vital Signs (12 hours) Temp Pulse Resp BP Pulse Ox 04/21/20 08:15 88 04/21/20 08:00 97.7 F 87 20 120/77 96 Weight Admit Weight 160 lb 4.417 oz Weight 160 lb 4.417 oz I&O: 04/20/20 04/21/20 04/22/20 06:59 06:59 06:59 Intake Total 1230 1080 480 Output Total 750 550 Balance 480 530 480 Result Diagrams: 04/17/20 04:34 04/17/20 04:34 Additional Labs: Accuchecks 04/21/20 04/21/20 04/20/20 11:44 04:46 19:36 POC Glucose 290 H 161 H 302 H 04/20/20 16:23 POC Glucose 264 H Hospitalist ROS - Medication Medications: Active Medications Generic Name Dose Route Start Last Admin Trade Name Freq PRN Reason Stop Dose Admin Acetaminophen 650 mg 04/09/20 00:27 04/13/20 20:21 Acetaminophen 325 Mg Tab PO 650 mg Q4H PRN Administration Headache/Fever/Mild Pain (1-3) Alogliptin Benzoate 25 mg 04/10/20 09:00 04/21/20 08:15 Alogliptin 25 Mg Tab PO 25 mg DAILY CAIT Administration Amlodipine Besylate 2.5 mg 04/10/20 09:00 04/21/20 08:15 Amlodipine 5 Mg Tab PO 2.5 mg DAILY CAIT Administration Ascorbic Acid 1,000 mg 04/09/20 09:00 04/21/20 08:15 Ascorbic Acid 500 Mg Chewable Tablet PO 1,000 mg DAILY CAIT Administration Cefdinir 300 mg 04/11/20 21:00 04/21/20 08:15 Cefdinir 300 Mg Cap PO 300 mg BID CAIT Administration Cholecalciferol 400 units 04/09/20 09:00 04/21/20 08:15 Cholecalciferol (Vitamin D3) 400 Units Tab PO 400 units DAILY CAIT Administration Diclofenac Sodium 2 gm 04/10/20 17:00 04/21/20 12:56 Diclofenac 1% 100 Gm Gel TP 2 gm QID CAIT Administration Heparin Sodium (Porcine) 5,000 units 04/09/20 09:00 04/21/20 08:14 Heparin 5,000 Units/Ml Vial SC 5,000 units TID CAIT Administration Insulin Glargine 13 units/ 0.13 mls @ 0 mls/hr 04/11/20 09:00 04/21/20 08:16 Miscellaneous Medication SC 0.13 mls QAM CAIT Administration Insulin Human Lispro 0 units 04/09/20 11:37 04/20/20 19:41 Humalog 300 Units/3 Ml Vial SC 4 unit .BEDTIME SLIDING SC PRN Administration Bedtime Correctional Scale Insulin Human Lispro 0 units 04/10/20 13:36 04/21/20 12:55 Humalog 300 Units/3 Ml Vial SC 6 unit .MODERATE SLIDING SC PRN Administration Moderate Correctional Scale Levetiracetam 500 mg 04/13/20 09:00 04/21/20 08:15 Levetiracetam 500 Mg Tab PO 500 mg BID CAIT Administration Metformin HCl 500 mg 04/09/20 18:00 04/21/20 08:15 Metformin Xr 500 Mg Tab PO 500 mg BID-PC CAIT Administration Nateglinide 120 mg 04/13/20 11:30 04/21/20 11:22 Nateglinide 120 Mg Tab PO 120 mg AC CAIT Administration Polyethylene Glycol 17 gm 04/12/20 09:00 04/21/20 08:16 Polyethylene Glycol 3350 17 Gm Packet PO 17 gm DAILY CAIT Administration Sodium Chloride 10 ml 04/09/20 01:00 04/09/20 23:36 Flush - Normal Saline 10 Ml Syringe IVF 10 ml PRN PRN Administration Saline Flush Zinc Sulfate 220 mg 04/09/20 09:00 04/21/20 08:16 Zinc Sulfate 220 Mg Cap PO 220 mg DAILY CAIT Administration Hospitalist Exam Vitals: Vital Signs (12 hours) Temp Pulse Resp BP Pulse Ox 04/21/20 08:15 88 04/21/20 08:00 97.7 F 87 20 120/77 96 Weight Admit Weight 160 lb 4.417 oz Weight 160 lb 4.417 oz Hosp A/P (1) COVID-19 Code(s): U07.1 - COVID-19 Status: Acute (2) UTI (urinary tract infection) Status: Acute Qualifiers: Urinary tract infection type: acute cystitis (3) Generalized weakness Code(s): R53.1 - WEAKNESS Status: Acute (4) DM (diabetes mellitus), type 2, uncontrolled Code(s): E11.65 - TYPE 2 DIABETES MELLITUS WITH HYPERGLYCEMIA Status: Chronic Qualifiers: Glycemic state: with hyperglycemia Qualified Code(s): E11.65 - Type 2 diabetes mellitus with hyperglycemia (5) AMY (acute kidney injury) Code(s): N17.9 - ACUTE KIDNEY FAILURE, UNSPECIFIED Status: Resolved - Plan She is pending transfer to intermediate facility. Clinically she is stable to transfer once she is approved. 04/16/2020. Continue current management plan. Plan for placement at a intermediate facility. 04/17/2020. Patient has no complaints today. Placement is pending hopefully tomorrow.
--- NOTE | 2020-04-21 14:47 | PDOC.DS.DS ---
Provider Date of Admission: 04/09/20 11:45 Date of Discharge: 04/21/20 Admitting Provider: Juan Carlos Byrne MD Primary Care Physician: Unknown Course Hospital Course: This is an 84-year-old woman who presented to the hospital a few days after she got her COVID-19 vaccine with a complaint of cough, low-grade fever and some GI symptoms. She was found to have COVID-19 pneumonia. However she was for the most part completely asymptomatic. Only pertinent findings during this visit was urinary tract infection with urine culture growing E. coli. She was treated appropriately with IV antibiotics. She has remained clinically stable and today she is felt to have reached optimal hospital benefit and is being discharged to a long-term facility. Lab Results: 04/17/20 04:34 04/17/20 04:34 Microbiology - Entire Visit 04/08/20 22:50 Venous blood - Left Arm Blood Culture - Final NO GROWTH IN 5 DAYS 04/08/20 20:37 Venous blood - Left Arm Blood Culture - Final NO GROWTH IN 5 DAYS 04/08/20 21:04 Urine Straight Catheter Urine Culture - Final Escherichia coli Vitals: Vital Signs (12 hours) Temp Pulse Resp BP Pulse Ox 04/21/20 08:15 88 04/21/20 08:00 97.7 F 87 20 120/77 96 Weight Admit Weight 160 lb 4.417 oz Weight 160 lb 4.417 oz Physical Exam: The patient was seen and examined on the day of discharge. General Appearance: NAD, awake alert Eye: PERRL, anicteric sclera ENT: normocephalic atraumatic, no oropharyngeal lesions Neck: supple, symmetric, no JVD, no thyromegaly Respiratory: CTAB, no wheezes, no rales Cardiovascular: RRR, no murmur, no gallops Gastrointestinal: soft, non-tender, non-distended Neurological: cranial nerve grossly intact PSYCH: normal affect, normal behavior Problem (1) COVID-19 Code(s): U07.1 - COVID-19 Status: Acute (2) UTI (urinary tract infection) Status: Acute Qualifiers: Urinary tract infection type: acute cystitis (3) Generalized weakness Code(s): R53.1 - WEAKNESS Status: Acute (4) DM (diabetes mellitus), type 2, uncontrolled Code(s): E11.65 - TYPE 2 DIABETES MELLITUS WITH HYPERGLYCEMIA Status: Chronic Qualifiers: Glycemic state: with hyperglycemia Qualified Code(s): E11.65 - Type 2 diabetes mellitus with hyperglycemia (5) AMY (acute kidney injury) Code(s): N17.9 - ACUTE KIDNEY FAILURE, UNSPECIFIED Status: Resolved Time Spent in discharge related activities (mins): 30 Plan Prescriptions: Amlodipine [Norvasc] 2.5 mg PO DAILY #30 tab Home Medications: Medication Instructions Recorded Confirmed Type Exenatide Microspheres [Bydureon 2 mg SC Q7D 04/09/20 04/09/20 History Pen] Losartan Potassium 25 mg PO DAILY 04/09/20 04/09/20 History Nateglinide [Starlix] 120 mg PO AC 04/09/20 04/09/20 History Saxagliptin HCl [Onglyza] 5 mg PO DAILY 04/09/20 04/09/20 History levETIRAcetam [Keppra] 1 tablet PO BID 04/09/20 04/09/20 History metFORMIN HCl [Metformin HCl ER] 500 mg PO BID-PC 04/09/20 04/09/20 History Amlodipine [Norvasc] 2.5 mg PO DAILY #30 tab 04/21/20 Rx Allergies: No Known Allergies Allergy (Verified 04/09/20 01:42) Discharge Instructions:: Regular diet; PT/OT evaluation and treatment Activity:: Activity as Tolerated Therapies:: Home Health Referrals: Unknown,Unknown [Primary Care Provider] - Disposition: [facility]ACILITY Quality CORE MEASURES:: N/A
--- NOTE | 2020-04-22 05:24 | PQF ---
Dear : Dagoberto Bueno Date 04/22/2020 Please exercise your independent, professional judgment in responding to the clarification form. Clinical indicators are provided on the bottom of this form for your review Based on your clinical judgment, can you please specify the infectious status of this patient? Please check appropriate box(es): [ ] Sepsis due to: please specify [ ] Severe Sepsis to: please specify [ ] Localized infection without sepsis [ ] Other diagnosis [ x] Unable to determine Physician Signature: Date/Time: For continuity of documentation, please document condition throughout progress notes and discharge summary. Thank You. To be completed by CDI/Coding staff for physician review: Present Clinical Indicators - Signs / Symptoms / Labs Results and Location in Medical Record [ x ] VS: BP: 181/99, P: 103, RR: 20 T: 100.1 ED Provider pg.2 [ x ] Tachycardic ED Provider pg.2 [ x ] DDX: Pneumonia, UTI, Sepsis, COVID19 ED Provider pg.3 [ x ] Weakness, cough H and P pg.1 [ x ] AMY H and P pg.5 [ x ] UTI with some encephalopathy Hospitalist PN. pg.5 04/10 [ x ] COVID positive-asymptomatic Hospitalist PN. pg.5 04/11 [ x ] UTI E.Coli Hospitalist PN. pg.5 04/11 [ x ] WBC: 14.6H, 11.0H, 11.7H, 10.4 Laboratory [ x ] POC Glucose: 389H, 231H, 255H, 314H, 210H, 355H Laboratory [ x ] Urine culture- E. COli Microbiology [ x ] Blood culture no growth for 5 days Microbiology [ x ] Admitted with COVID pneumonia Hospita;ist PN pg.1 04/15 Present Risk Factors Results and Location in Medical Record [ x ] UTI H and P pg.5 [ x ] COVID19 H and P pg.5 [ x ] DM type 2 uncontrolled H and P pg.5 [ x ] 84 years old H and P pg.1 Present Treatments Results and Location in Medical Record [ x ] IV Fluids MAR [ x ] Ceftriaxone 1gm IV MAR [ x ] Rocephin 2gm IV MAR CDS/Vp Publisher Development Signature: Cuauhtemoc Keen Phone #: [phone] Date 04/22/2020 This is a permanent part of the Medical Record [facility]
--- NOTE | 2020-04-23 17:48 | EKG ---
Test Reason : Blood Pressure : / mmHG Vent. Rate : 091 BPM Atrial Rate : 091 BPM P-R Int : 162 ms QRS Dur : 078 ms QT Int : 354 ms P-R-T Axes : 059 -03 037 degrees QTc Int : 435 ms Normal sinus rhythm Normal ECG Confirmed by BENIGNO Deutsch, EDIS ([id number]), video effects editor HERBERTH JARQUIN ([id number]) on 04/23/2020 5:48:32 PM Referred By: Confirmed By:EDIS PELAEZ M.D.
== END 2020-04-21 17:04 | DRG 177 ==
LOC: ERS 20:07 → T4-A 23:55 → OBSVTOIN 04-09 11:45
PROVIDERS: ADMIT Internal Medicine; ATTEND Hospitalist
PROC: 8E0ZXY6 Isolation (ICD-10-PCS; principal; 2020-04-09)
DX: U07.1 COVID-19 (principal); J12.82 Pneumonia due to coronavirus disease 2019; N17.9 Acute kidney failure, unspecified; N30.00 Acute cystitis without hematuria; G93.40 Encephalopathy, unspecified; E11.65 Type 2 diabetes mellitus with hyperglycemia; I10 Essential (primary) hypertension; B96.20 Unspecified Escherichia coli [E. coli] as the cause of diseases classified elsewhere; E03.9 Hypothyroidism, unspecified; Z79.84 Long term (current) use of oral hypoglycemic drugs; Z79.899 Other long term (current) drug therapy
CPT/HCPCS: 0240U; 36415; 36416; 51701; 71045; 80048; 80053; 81003; 81015; 82550; 82728; 83735; 84484; 85025; 85379; 86140; 87040; 87077; 87086; 87186; 93005; 96365; G0378; J0696; J1644; J1815; J3490